=== PATIENT | female | born 1955 | race Caucasian/White ===

== ENCOUNTER → 2017-12-20 12:36 | Outpatient (CLI) | payer OTHER, SELFPAY ==
--- NOTE | 2017-12-20 | DI.US.S_ITS ---
PROCEDURE: US ARTERIAL DUPLEX LE BI INDICATIONS: Bilateral lower extremity pain TECHNIQUE: Color and pulse Doppler interrogation was performed of both lower extremity arterial systems, with image documentation. COMPARISON: None. FINDINGS: Right lower extremity: Common femoral artery: 63 cm/sec, with triphasic flow. Deep femoral artery: 27 cm/sec, with triphasic flow. Proximal superficial femoral artery: 78 cm/sec, with triphasic flow. Mid superficial femoral artery: 67 cm/sec, with triphasic flow. Distal superficial femoral artery: 77 cm/sec, with triphasic flow. Popliteal artery: 35 cm/sec, with triphasic flow. Posterior tibial artery: 92 cm/sec, with triphasic flow. Anterior tibial artery/dorsalis pedis: 128 cm/sec, with biphasic flow. Zazueta-scale imaging description: Normal. Left lower extremity: Common femoral artery: 76 cm/sec, with triphasic flow. Deep femoral artery: 41 cm/sec, with biphasic flow. Proximal superficial femoral artery: 72 cm/sec, with triphasic flow. Mid superficial femoral artery: 59 cm/sec, with triphasic flow. Distal superficial femoral artery: 49 cm/sec, with triphasic flow. Popliteal artery: 38 cm/sec, with triphasic flow. Posterior tibial artery: 68 cm/sec, with triphasic flow. Anterior tibial artery/dorsalis pedis: 53 cm/sec, with triphasic flow. Zazueta-scale imaging description: Normal IMPRESSION: 1. No hemodynamic significant stenosis in lower extremity arteries bilaterally. Dictated by: Lee Robb M.D. on 12/20/2017 at 16:54 Approved by: Lee Robb M.D. on 12/20/2017 at 16:57
== END ==
PROVIDERS: Family Provider Internal Medicine; PCP Internal Medicine; Visit Provider Internal Medicine
DX: M79.604 Pain in right leg (principal); M79.605 Pain in left leg
CPT/HCPCS: 93925

== ENCOUNTER → 2018-08-28 09:53 | Outpatient (CLI) | payer OTHER, SELFPAY | PROVIDERS: PCP Internal Medicine; Visit Provider Internal Medicine | DX: M81.0 Age-related osteoporosis without current pathological fracture (principal); Z78.0 Asymptomatic menopausal state; Z82.62 Family history of osteoporosis | CPT/HCPCS: 77080 ==

== ENCOUNTER 2018-12-26 11:40 | Day surgery (SDC) | payer OTHER, SELFPAY ==
[2018-12-26] VITALS (7 sets, daily range): BP systolic 105–139; BP diastolic 66–80; PULSE 60–68; RESP 13–16; TEMP 36.4–36.8; O2SAT 15–99; BMI 19.1
[2018-12-26] MEDS: SODIUM CHLORIDE 0.9% 1,000 ML 200 ML IV (12:58)
--- NOTE | 2018-12-26 13:11 | PM.HP.1 ---
History of Present Illness Date Patient Seen: 12/26/18 Time Patient Seen: 13:11 Chief complaint: [id number] Narrative: 63-year-old woman presents for screening colonoscopy. Last colonoscopy 6 years ago with single polyp identified No family history of colorectal cancer Tolerated it prep well Patient History Social History household members: spouse Family & Social History Social History: household members spouse Meds Home Medications Medication Instructions Recorded Confirmed Type COENZYME Q10/VITAMIN E (CO-Q-10 100 mg PO QDAY #0 09/20/12 12/26/18 History 100mg) B12 500 mcg PO DAILY 12/26/18 12/26/18 History cholecalciferol (vitamin D3) 2,000 unit PO DAILY 12/26/18 12/26/18 History [Vitamin D3] Allergies Allergy/AdvReac Type Severity Reaction Status Date / Time No Known Drug Allergies Allergy Verified 12/26/18 12:51 Review of Systems Constitutional Constitutional: Denies fever(s) Eyes Eyes: Denies bulging eyes ENT Ears, Nose, Mouth, and Throat: No lip swelling Cardiovascular Cardiovascular: Denies generalize swelling Respiratory Respiratory: Denies stridor Gastrointestinal Gastrointestinal: Denies coffee ground emesis Musculoskeletal Musculoskeletal: Denies loss of height Integumentary/Breasts Skin/Breast: Denies wounds Neurologic Neurologic: Denies abnormal speech and Denies confusion Psychiatric Psychiatric: Denies confusion Endocrine Endocrine: Denies deepening of the voice Hematologic/Lymphatic Hematologic/Lymphatic: Denies lymphadenopathy Allergic/Immunologic Allergic/Immunologic: Denies lip swelling Exam Vital Signs (past 8 hours): - 12/26/18 12:50 Temperature 98.2 F Pulse Rate 60 Respiratory Rate 15 Blood Pressure 139/80 Pulse Oximetry 99 Const General: cooperative and healthy appearing Orientation: alert [facility] Head: normal to inspection Nose: nares normal Mouth: oral mucosae normal and lip normal Eyes Eyelids: eyelids normal Conjunctivae: conjunctivae normal Sclera: sclerae normal Neck Neck: supple and other (No thyromegally) Chest Chest: other (LCTAB , regular respiratory effort) Cardio Rhythm: regular rhythm Heart Sounds: S1 normal, S2 normal, no gallops, no murmurs and no rubs GI Other: Soft nontender nondistended Skin General: no rashes or lesions noted Neuro General: alert and awake Psych Appearance: grossly normal Affect: normal affect Assessment & Plan Assessment & Plan narrative: 63-year-old woman here for screening colonoscopy overdue by 1 year risks and benefits procedure discuss risks including perforation, , missed lesion, hypoxia all discussed All questions answered Patient rated proceed
[2018-12-26] MEDS: fentaNYL 250 MCG/5 ML INJ IV (13:39)
[2018-12-26] MEDS: MIDAZOLAM 5 MG/5 ML VIAL IV (13:40)
--- NOTE | 2018-12-26 13:41 | PM.OP.ENDO ---
Operative Date/Time/Diagnoses Date of procedure: 12/26/18 Time of procedure: 13:41 Pre-op diagnosis: Screening colonoscopy Post-op diagnosis: same Procedure & Clinicians Study performed: Screening colonoscopy-complete Same procedure as scheduled: Yes Indications: 63-year-old woman with a history of colon polyps presents 6 years after her most recent screening colonoscopy Surgeon: Armando Cullen Procedure Notes SCOAP/Timeout: Completed Procedure in detail: Patient was brought to the endoscopy suite. A time-out was completed. She was sedated over the entire course of her procedure was 75 mcg of fentanyl and 8 mg of midazolam. A digital rectal exam was performed. There are no masses or lesions. Under 60 cm colonoscope was introduced through the anus and through the folds of the rectum and colon until the cecum was identified. The colon itself was quite floppy, tortuous and redundant. The cecum was identified via a prominent gross foot and the ileocecal valve. The scope was then slowly withdrawn inspecting the intraluminal contents. No lesions were identified. Prep was adequate The scope was retroflexed in the distal rectum with again no lesions identified Scope withdrawal time: 8 Sedation minutes: 26 Specimen(s): none sent Complications: none Impression: Normal screening colonoscopy Quite tortuous colon Recommendations: Colonscopy in 5 years Plan for aftercare: Follow-up in 5 years due to history of previous colon polyps Follow up: as needed Disposition: PACU
== END 2018-12-26 14:28 | disposition home or self-care (01) ==
LOC: ENDO 11:41
PROVIDERS: PCP Internal Medicine; Visit Provider Surgery
PROC: 0DJD8ZZ Inspection of Lower Intestinal Tract, Via Natural or Artificial Opening Endoscopic (ICD-10-PCS; CPT 45378; principal; 2018-12-26 13:00)
DX: Z86.010 Personal history of colon polyps (principal)
CPT/HCPCS: 45378; 99152; J2250; J3010

== ENCOUNTER → 2020-07-01 14:00 | Outpatient (CLI) | payer MEDICARE, OTHER, SELFPAY ==
--- NOTE | 2020-07-01 | DI.US.S_ITS ---
LIMITED ULTRASOUND OF LEFT BREAST: 07/01/2020 CLINICAL: Palpable left breast lump by physician. Comparison is made to exams dated: 07/01/2020 mammogram - [facility] and 09/26/2017 mammogram - [facility]. Real-time ultrasound of the left breast 12 o'clock region was performed. Zazueta scale images of the real-time examination were reviewed. No significant abnormalities were seen sonographically in the left breast. IMPRESSION: NEGATIVE There is no sonographic evidence of malignancy. There is no abnormality seen in the left breast to correspond with the palpable abnormality at 12 o'clock, however, clinical correlation is recommended. A 1 year screening mammogram is recommended. This exam was interpreted at Station ID: [id number]. Electronically Signed By: Ramírez abdi/lili:07/01/2020 15:49:39 letter sent: Clinical Evaluation Ultrasound BI-RADS: 1 Negative
--- NOTE | 2020-07-01 | DI.MG.S_ITS ---
BILATERAL DIGITAL DIAGNOSTIC MAMMOGRAM 3D/2D: 07/01/2020 CLINICAL: Left breast mass. Comparison is made to exams dated: 07/24/2013 mammogram, 06/21/2011 mammogram - [facility], and 09/26/2017 mammogram - [facility]. The tissue of both breasts is predominantly fatty. No significant masses, calcifications, or other findings are seen in either breast. IMPRESSION: INCOMPLETE: NEEDS ADDITIONAL IMAGING EVALUATION There is no abnormality seen in the left breast to correspond with the physician-reported palpable abnormality at 12 o'clock, however, ultrasound is recommended. This exam was interpreted at Station ID: [id number]. NOTE: For mammograms, a report in lay terms will be sent to the patient. Approximately 15% of breast malignancies will not be visualized mammographically. In the management of a palpable breast mass, a negative mammogram must not discourage biopsy of a clinically suspicious lesion. SUMMARY: Targeted ultrasound is recommended for further evaluation and will be scheduled immediately following this exam. Electronically Signed By: Ramírez Kitchen M.D. ar/:07/01/2020 14:47:36 ACR BI-RADS Category 0: Incomplete [id number]
== END ==
PROVIDERS: PCP Internal Medicine; Referring Provider Internal Medicine; Visit Provider Internal Medicine
DX: R92.8 Other abnormal and inconclusive findings on diagnostic imaging of breast (principal); N63.25 Unspecified lump in the left breast, overlapping quadrants
CPT/HCPCS: 76642; 77066; G0279

== ENCOUNTER 2020-09-22 13:34 | Observation (INO) | payer MEDICARE, OTHER, SELFPAY ==
[2020-09-22] VITALS (8 sets, daily range): BP systolic 106–183; BP diastolic 68–94; PULSE 51–117; RESP 12–27; TEMP 36.4–36.6; O2SAT 92–99
--- NOTE | 2020-09-22 13:49 | DI.RAD.S_ITS ---
PROCEDURE: XR CHEST 1V INDICATIONS: chest pain TECHNIQUE: One view of the chest was acquired. COMPARISON: None. FINDINGS: Surgical changes and devices: None. Lungs and pleura: Lungs are clear. No pleural effusions or pneumothorax. Mediastinum: Mediastinal contours appear normal. Heart size is normal. Bones and chest wall: No suspicious bony lesions. Overlying soft tissues appear unremarkable. IMPRESSION: No acute process. Dictated by: Marcelle Ace M.D. on 09/22/2020 at 14:10 Approved by: Marcelle Ace M.D. on 09/22/2020 at 14:11
[2020-09-22] MEDS: ASPIRIN 81 MG CHEW TAB 324 MG PO (14:03)
[2020-09-22 14:06] LABS: Add Manual Diff / Slide Review NO; Basophils Absolute Auto 100 /uL (0-100); Eosinophils Absolute Auto 100 /uL (0-450); Eosinophils Percent Auto 1.4 % (2-4); Hematocrit 41.6 % (36-46); Lymphocytes Absolute Auto 2200 /uL (1100-4500); Lymphocytes Percent Auto 36.9 % (25-40); Mean Corpuscular HGB Conc 33.7 % (30-36); Mean Corpuscular Hemoglobin 31.4 PG (26-34); Mean Corpuscular Volume 93.3 fL (80-100); Monocytes Absolute Auto 600 /uL (0-900); Monocytes Percent Auto 10.6 % (3-14); Neutrophils Absolute Auto 3100 /uL (1500-7000); Neutrophils Percent Auto 50.1 % (50-75); Platelet Count 307 X10^3/uL (150-400); Red Blood Cell Count 4.46 X10^6/uL (4.0-5.2); Red Cell Distribution Width 13.7 % (11.6-14.8); White Blood Cell Count 6.1 X10^3/uL (4.5-11.0)
[2020-09-22 14:09] LABS: PTT Partial Thromboplastin Tim 33 SECONDS (26.4-36.2)
[2020-09-22 14:24] LABS: Alanine Aminotransferase 26 IU/L (<35); Albumin 4.4 g/dL (3.5-5.0); Albumin Globulin Ratio 1.5 (1.0-2.8); Alkaline Phosphatase 61 U/L (38-126); Aspartate Aminotransferase 35 IU/L (14-36); BUN Creatinine Ratio 29.7 (6-22); Bilirubin Total 0.2 mg/dL (0.2-1.3); Blood Urea Nitrogen 19 mg/dL (7-17); Calcium 9.5 mg/dL (8.4-10.2); Carbon Dioxide 30 mmol/L (22-32); Chloride 101 mmol/L (98-107); Creatine Kinase 142 U/L (30-135); Estimated Glomerular Filt Rate > 60.0 mL/min (>60); Glucose 105 mg/dL (80-110); HEMOLYSIS 17 (0-50); Lipase 101 U/L (23-300); Potassium 3.7 mmol/L (3.4-5.1); Sodium 136 mmol/L (137-145); Total Protein 7.4 g/dL (6.3-8.2)
--- NOTE | 2020-09-22 14:33 | ED.CHESTPAIN ---
HPI - Chest Pain General Chief Complaint: Chest Pain Stated Complaint: Chest Pain 2X Time Seen by Provider: 09/22/20 13:54 Source: patient Mode of arrival: Ambulatory Limitations: no limitations History of Present Illness HPI narrative: Patient is a 64-year-old healthy female who is very active presenting with 3 days of chest discomfort. sHe says that she has had 1 episodes of chest discomfort that started on the left side and seemed to gradually get bigger and lasted for 15 minutes. It starts at rest it does not radiate to her back drawn off or arm. She denies any shortness of breath. In fact she was able to still run 5 miles following day and mow her lawn yesterday. She denies any fluttering or palpitations. She has a lot of stress at home with an alcoholic . MD complaint: chest pain Onset (ago): day(s) Quality: aching Relieving factors: nothing Exacerbating factors: nothing Related Data Home Medications Medication Instructions Recorded Confirmed COENZYME Q10/VITAMIN E (CO-Q-10 100 mg PO QDAY #0 09/20/12 09/22/20 100mg) B12 500 mcg PO DAILY 12/26/18 09/22/20 cholecalciferol (vitamin D3) 2,000 unit PO DAILY 12/26/18 09/22/20 [Vitamin D3] Allergies Allergy/AdvReac Type Severity Reaction Status Date / Time No Known Drug Allergies Allergy Verified 09/22/20 14:29 Review of Systems Review of Systems Narrative: GENERAL: Denies chills, fatigue, malaise, fever, sweats, travel HEENT: Denies sinus pain, ear pain, sore throat, difficulty swallowing, neck pain RESPIRATORY: Denies dyspnea, cough, wheezing, hemoptysis, sputum. CARDIOVASCULAR: See HPI GASTROINTESTINAL: Denies nausea, vomiting, abdominal pain, diarrhea, constipation, melena. : Denies dysuria, frequency, incontinence, hematuria, urinary retention, flank pain. MUSCULOSKELETAL: Denies weakness, joint pain, or bony pain SKIN: No rash, no erythema, no pruritus NEUROLOGIC: Denies weakness, dizziness, headache, numbness, change in speech, confusion PSYCHIATRIC: No concerning psychosocial issues. 12 point review of systems is negative except for those stated above and HPI Patient History Medical History Patient denies medical problems Social History household members: spouse Smoking Status: Never smoker Smoking Status: Never smoker alcohol intake frequency: 0-2 drinks per day Substance Use Type: does not use Exam Initial Vital Signs Initial Vital Signs: Vital Signs Pulse Rate 75 09/22/20 13:41 Respiratory Rate 19 09/22/20 13:41 Pulse Oximetry 96 09/22/20 13:41 GENERAL: Well-appearing, well-nourished and in no acute distress. HEENT: Head atraumatic,EOMI, pupils reactive, face symmetric, moist mucous membranes CARDIOVASCULAR: Regular rate and rhythm without murmurs, rubs or gallops. RESPIRATORY: Breath sounds equal bilaterally, no wheezes rales or rhonchi. ABDOMEN: Soft, nontender. Normoactive bowel sounds all 4 quadrants. No guarding or rebound. EXTREMITIES: Normal range of motion, no clubbing or edema. Neurovascularly intact NEUROLOGICAL: Alert and oriented x4.Normal gait and speech. Cranial nerves II through XII grossly intact. SKIN: Warm, dry, no laceration, no petechiae, no rashes or lesions. Scores HEART Score Heart Score history: Slightly Suspicious Heart Score EKG: Normal Heart Score Age: > or = 65 years old Heart Score risk factors: No known risk factors Heart Score troponin: < or = to normal limit Heart Score Total: 2 Course Orders Ordered: ED Orders 09/22/20 13:45 Complete Blood Count AUTO DIFF Stat Comprehensive Metabolic Panel Stat Lipase Stat Magnesium Stat NT-proBNP (BNP-Adult 18+) Stat Partial Thromboplastin Time Stat Prothrombin Time INR Stat Troponin & CK Cardiac Panel Stat 09/22/20 13:49 XR chest 1V Stat EKG-12 Lead Stat 09/22/20 14:00 Thyroid Stimulating Hormone Stat 09/22/20 14:14 COVID19 - ADMIT (ACTU[employer]IAL MATHEMATICIAN swab/PCR) Stat Nitroglycerin (Nitroglycerin 0.4 Mg Sl Tab) 0.4 mg SL [id number] PRN PRN Reason: Chest Pain Discontinued Medications Aspirin (Aspirin 81 Mg Chew Tab) 324 mg PO NOW ONE Stop: 09/22/20 13:50 Last Admin: 09/22/20 14:03 Dose: 324 mg Documented by: HERIBERTO Vital Signs Vital signs: Vital Signs - 8 hr 09/22/20 13:41 09/22/20 14:00 09/22/20 14:25 Temperature 97.5 F L Pulse Rate 75 64 71 Respiratory Rate 19 12 15 Blood Pressure 169/94 H 183/89 H Pulse Oximetry 96 99 92 09/22/20 14:30 09/22/20 15:00 09/22/20 15:30 Temperature Pulse Rate 51 L 54 L 53 L Respiratory Rate 27 H 16 15 Blood Pressure 140/74 152/77 H 139/68 Pulse Oximetry 99 99 99 MDM - Chest Pain Lab Data Attestation: I reviewed the patient's lab results. Result diagrams: 09/22/20 13:45 09/22/20 13:45 Labs: Lab Results 09/22/20 09/22/20 09/22/20 Range/Units 13:45 13:45 13:45 WBC 6.1 (4.5-11.0) X10^3/uL RBC 4.46 (4.0-5.2) X10^6/uL Hgb 14.0 (12.0-16.0) g/dL Hct 41.6 (36-46) % MCV 93.3 (80-100) fL MCH 31.4 (26-34) PG MCHC 33.7 (30-36) % RDW 13.7 (11.6-14.8) % Plt Count 307 (150-400) X10^3/uL Neut % (Auto) 50.1 (50-75) % Lymph % (Auto) 36.9 (25-40) % [place] % (Auto) 10.6 (3-14) % Eos % (Auto) 1.4 L (2-4) % Baso % (Auto) 1.0 (0-2) % Neut # (Auto) 3100 (5716-5595) /uL Lymph # (Auto) 2200 (0840-8198) /uL [place] # (Auto) 600 (0-900) /uL Eos # (Auto) 100 (0-450) /uL Baso # (Auto) 100 (0-100) /uL PT 11.0 (10.1-12.7) SECONDS INR 1.0 (0.9-1.3) APTT 33 (26.4-36.2) SECONDS Sodium 136 L (137-145) mmol/L Potassium 3.7 (3.4-5.1) mmol/L Chloride 101 (98-107) mmol/L Carbon Dioxide 30 (22-32) mmol/L BUN 19 H (7-17) mg/dL Creatinine 0.64 (0.52-1.04) mg/dL Estimated GFR > 60.0 (>60) mL/min BUN/Creatinine Ratio 29.7 H (6-22) Glucose 105 (80-110) mg/dL Calcium 9.5 (8.4-10.2) mg/dL Magnesium (1.6-2.3) mg/dL Total Bilirubin 0.2 (0.2-1.3) mg/dL AST 35 (14-36) IU/L ALT 26 (<35) IU/L Alkaline Phosphatase 61 (38-126) U/L Total Creatine Kinase 142 H (30-135) U/L CK-MB (CK-2) 2.66 H (<2.37) ng/mL CK-MB (CK-2) Rel Index 1.9 (1.5-5.0) % Troponin I < 0.012 (0.01-0.034) ng/mL NT-Pro-B Natriuret Pep (<125) pg/mL Total Protein 7.4 (6.3-8.2) g/dL Albumin 4.4 (3.5-5.0) g/dL Globulin 3.0 (1.7-4.1) g/dL Albumin/Globulin Ratio 1.5 (1.0-2.8) Lipase 101 (23-300) U/L TSH (0.47-4.68) uIU/mL SARS-CoV-2 (PCR) (Negative) 09/22/20 09/22/20 09/22/20 Range/Units 13:45 14:00 14:14 WBC (4.5-11.0) X10^3/uL RBC (4.0-5.2) X10^6/uL Hgb (12.0-16.0) g/dL Hct (36-46) % MCV (80-100) fL MCH (26-34) PG MCHC (30-36) % RDW (11.6-14.8) % Plt Count (150-400) X10^3/uL Neut % (Auto) (50-75) % Lymph % (Auto) (25-40) % [place] % (Auto) (3-14) % Eos % (Auto) (2-4) % Baso % (Auto) (0-2) % Neut # (Auto) (2652-7912) /uL Lymph # (Auto) (8980-4647) /uL [place] # (Auto) (0-900) /uL Eos # (Auto) (0-450) /uL Baso # (Auto) (0-100) /uL PT (10.1-12.7) SECONDS INR (0.9-1.3) APTT (26.4-36.2) SECONDS Sodium (137-145) mmol/L Potassium (3.4-5.1) mmol/L Chloride (98-107) mmol/L Carbon Dioxide (22-32) mmol/L BUN (7-17) mg/dL Creatinine (0.52-1.04) mg/dL Estimated GFR (>60) mL/min BUN/Creatinine Ratio (6-22) Glucose (80-110) mg/dL Calcium (8.4-10.2) mg/dL Magnesium 2.2 (1.6-2.3) mg/dL Total Bilirubin (0.2-1.3) mg/dL AST (14-36) IU/L ALT (<35) IU/L Alkaline Phosphatase (38-126) U/L Total Creatine Kinase (30-135) U/L CK-MB (CK-2) (<2.37) ng/mL CK-MB (CK-2) Rel Index (1.5-5.0) % Troponin I (0.01-0.034) ng/mL NT-Pro-B Natriuret Pep 116 (<125) pg/mL Total Protein (6.3-8.2) g/dL Albumin (3.5-5.0) g/dL Globulin (1.7-4.1) g/dL Albumin/Globulin Ratio (1.0-2.8) Lipase (23-300) U/L TSH 1.63 (0.47-4.68) uIU/mL SARS-CoV-2 (PCR) Negative (Negative) Imaging Data Chest x-ray: Radiologist's Impression: PROCEDURE: XR CHEST 1V INDICATIONS: chest pain TECHNIQUE: One view of the chest was acquired. COMPARISON: None. FINDINGS: Surgical changes and devices: None. Lungs and pleura: Lungs are clear. No pleural effusions or pneumothorax. Mediastinum: Mediastinal contours appear normal. Heart size is normal. Bones and chest wall: No suspicious bony lesions. Overlying soft tissues appear unremarkable. IMPRESSION: No acute process. Dictated by: Marcelle Ace M.D. on 09/22/2020 at 14:10 ECG Data Attestation: I personally reviewed and interpreted this ECG as follows: Prior ECG tracings: not available for review Interpretation: Normal sinus rhythm rate 59 p.r. interval 132 QRS [address] changes no T-wave inversions MDM Narrative Medical decision making narrative: The patient has been chest pain-free while in the ED. However she did have 2nd run of V tach at 2:34 p.m.. At that time did not appear to be artifact and she felt some fluttering. 3:[address] Nany arredondo cardiology has been updated patient's symptoms and test results. At this time he recommends of echocardiogram and stress test along with adding a TSH and possibly starting her on a beta-michelle. He recommends that she can stay here at [facility] and does not need to be transferred. 3:[address] Swan updated on cardiology results patient's symptoms and test results and agrees with observation. Discharge Plan Departure Patient Disposition: Admitted as Observation Clinical Impression: Non-sustained ventricular tachycardia, Chest pain Admit Date/Time: 09/22/20 15:35 Admit Provider: Diamante Swan
[2020-09-22 14:36] LABS: Troponin I < 0.012 ng/mL (0.01-0.034)
[2020-09-22 14:39] LABS: CKMB % Relative Index 1.9 % (1.5-5.0); Creatine Kinase MB 2.66 ng/mL (<2.37)
[2020-09-22 14:43] LABS: Magnesium 2.2 mg/dL (1.6-2.3)
--- NOTE | 2020-09-22 14:48 | PC.NURSE ---
patient had a short run of Vtach on the monitor. RN immediately assessed. The patient reported feeling palpitations during the run. She was hooked up to the defibrillator, crash cart in room.
[2020-09-22 14:52] LABS: NT-proBNP (BNP-Adult 18+) 116 pg/mL (<125)
[2020-09-22 15:26] LABS: COVID19 - ADMIT (NP swab/PCR) Negative (Negative)
[2020-09-22 16:22] LABS: Thyroid Stimulating Hormone 1.63 uIU/mL (0.47-4.68)
--- NOTE | 2020-09-22 20:47 | PM.HP.1 ---
History of Present Illness History of Present Illness Date Patient Seen: 09/22/20 Time Patient Seen: 20:47 Date of Onset of Symptoms: 09/19/20 Chief complaint: Chest Pain 2X Narrative: This is a very pleasant healthy 64-year-old female who presents emergency department for complaints of a episode of left anterior chest pain occurring on 09/19/2020. The patient states that over the last 2 years approximately every 6 months she will have left anterior chest pain that lasts for about 15 minutes and spontaneously resolved. She had an episode on September 19 and she had a little bit of nausea but no vomiting no shortness of breath no diaphoresis is nonradiating and it resolved on its own. She went for a 5 mi run on Tuesday and felt good without any symptoms. She runs on a regular basis. She denies any exertional dyspnea or chest pain or palpitations. She was a little concerned about that and then this morning she noticed similar symptoms but less significant in and really only lasted for couple minutes. She met with several people today which she had previously had planned including her delinquency prevention social worker Dr. Monty Desir and they recommended she go into the ER to be evaluated. She was found to have a negative EKG negative CK and troponin and story was unconvincing for coronary artery disease and initially the emergency room physician was going to send her home but then she had a 6 beat episode of ventricular tachycardia and she discussed the case with Dr. ravindra mg who recommended admission for overnight observation with telemetry and stress testing and echo to be done in the morning. Otherwise patient is very healthy. She does describe having episodes every once in a while that are not associated with any chest pain shortness of breath or presyncope or syncope where she feels her heart flutter. She is under all a significant amount of stress as her is an alcoholic and she lives with him in [place]. She has had some mild elevated blood pressure and is seen Dr. Lepe to treat this naturally and was started on some type of herb about a week ago to treat this. Past medical history: 1. Osteoporosis, postmenopausal 2. Muscle cramps 3. History of basal cell carcinoma 4. History of colonic polyps 5. Hyperlipidemia 6. Elevated blood pressure without the diagnosis of hypertension 7. Situational stressor No chronic medications. She takes supplements including calcium and vitamin-D and Co Q10 Past surgical history 1. section x1 2. Two thousand four basal cell carcinoma removal Family history her father at age 22 secondary to a congenital heart defect Her mother at 70 from lung cancer Patient has 4 siblings who are all living Social history patient is and is retired Patient is retired Patient has 1 daughter who lives in [place] Health related behavior : Patient has never been a smoker Patient does not use alcohol and does not use illicit drugs Patient exercises regularly Review of systems is negative other than HPI Negative for any change in her bowel movements. Negative for any abdominal pain. Negative for any bright red per rectum. Negative for any fevers or chills or cough or dyspnea on exertion or PND orthopnea or lower extremity edema or rashes Patient has been under a large amount of stress Patient History Medical History Patient denies medical problems Family & Social History Social History: household members spouse Safety & Behavioral: Feels Safe in Current Yes Environment Been Physically Hurt or No Threatened By a Person Suicidal Ideation Description None Suicide Plan Description No Plan Tobacco & Substance use: Smoking Status Never smoker alcohol intake frequency 0-2 drinks per day Substance Use Type does not use Meds Home Medications and Allergies Home Medications Medication Instructions Recorded Confirmed Type COENZYME Q10/VITAMIN E (CO-Q-10 100 mg PO QDAY #0 09/20/12 09/22/20 History 100mg) B12 500 mcg PO DAILY 12/26/18 09/22/20 History cholecalciferol (vitamin D3) 2,000 unit PO DAILY 12/26/18 09/22/20 History [Vitamin D3] Allergies Allergy/AdvReac Type Severity Reaction Status Date / Time No Known Drug Allergies Allergy Verified 09/22/20 14:29 Exam Vital Signs (past 8 hours): - 09/22/20 13:41 09/22/20 14:00 09/22/20 14:25 Temperature 97.5 F L Pulse Rate 75 64 71 Respiratory Rate 19 12 15 Blood Pressure 169/94 H 183/89 H Pulse Oximetry 96 99 92 09/22/20 14:30 09/22/20 15:00 09/22/20 15:30 Temperature Pulse Rate 51 L 54 L 53 L Respiratory Rate 27 H 16 15 Blood Pressure 140/74 152/77 H 139/68 Pulse Oximetry 99 99 99 09/22/20 16:20 09/22/20 20:15 Temperature 97.5 F L 97.9 F Pulse Rate 117 H 57 L Respiratory Rate 20 18 Blood Pressure 163/91 H 106/69 Pulse Oximetry 93 97 Oxygen Delivery Method Room Air Oxygen Flow Rate 0 Narrative Exam Narrative: Afebrile, vital signs are stable Alert and oriented x3 and excellent historian HEENT: Unremarkable Neck: Supple without adenopathy Chest: Clear to auscultation without wheezes rhonchi or crackles Cor: Regular rate and rhythm without any murmur Abdomen: Positive bowel sounds, soft, nontender, nondistended no hepatosplenomegaly Extremities: No edema, pulses intact Neurologic exam is nonfocal No tenderness to palpation of the precordium Objective Labs Result Diagrams: 09/22/20 13:45 09/22/20 13:45 Labs: Laboratory Results - last 24 hr 09/22/20 09/22/20 09/22/20 13:45 13:45 13:45 WBC 6.1 RBC 4.46 Hgb 14.0 Hct 41.6 MCV 93.3 MCH 31.4 MCHC 33.7 RDW 13.7 Plt Count 307 Neut % (Auto) 50.1 Lymph % (Auto) 36.9 [place] % (Auto) 10.6 Eos % (Auto) 1.4 L Baso % (Auto) 1.0 Neut # (Auto) 3100 Lymph # (Auto) 2200 [place] # (Auto) 600 Eos # (Auto) 100 Baso # (Auto) 100 PT 11.0 INR 1.0 APTT 33 Sodium 136 L Potassium 3.7 Chloride 101 Carbon Dioxide 30 BUN 19 H Creatinine 0.64 Estimated GFR > 60.0 BUN/Creatinine Ratio 29.7 H Glucose 105 Calcium 9.5 Magnesium Total Bilirubin 0.2 AST 35 ALT 26 Alkaline Phosphatase 61 Total Creatine Kinase 142 H CK-MB (CK-2) 2.66 H CK-MB (CK-2) Rel Index 1.9 Troponin I < 0.012 NT-Pro-B Natriuret Pep Total Protein 7.4 Albumin 4.4 Globulin 3.0 Albumin/Globulin Ratio 1.5 Lipase 101 TSH SARS-CoV-2 (PCR) 09/22/20 09/22/20 09/22/20 13:45 14:00 14:14 WBC RBC Hgb Hct MCV MCH MCHC RDW Plt Count Neut % (Auto) Lymph % (Auto) [place] % (Auto) Eos % (Auto) Baso % (Auto) Neut # (Auto) Lymph # (Auto) [place] # (Auto) Eos # (Auto) Baso # (Auto) PT INR APTT Sodium Potassium Chloride Carbon Dioxide BUN Creatinine Estimated GFR BUN/Creatinine Ratio Glucose Calcium Magnesium 2.2 Total Bilirubin AST ALT Alkaline Phosphatase Total Creatine Kinase CK-MB (CK-2) CK-MB (CK-2) Rel Index Troponin I NT-Pro-B Natriuret Pep 116 Total Protein Albumin Globulin Albumin/Globulin Ratio Lipase TSH 1.63 SARS-CoV-2 (PCR) Negative Assessment & Plan Assessment & Plan narrative: 64-year-old female admitted for left anterior chest pain with episode brief of ventricular tachycardia in the ER Plan: Will admit to the hospital to rule out for acute myocardial infarction. TSH and magnesium is normal. We will do serial CKs and troponins. If these are negative we will do echo in the morning is stress Mibi Will continue telemetry Assessment 2. Elevated blood pressure suspect related to anxiety Plan: Will monitor throughout hospitalization Assessment 3. Osteoporosis no issues Code status is full code Quality VTE Deep Vein Thrombosis/Pulmonary Embolism Present on Admission: No
--- NOTE | 2020-09-22 22:37 | PC.NURSE ---
Pt alert/oriented, denies any discomfort at this time HL RFA intact/patent. Tele show NSR/SB Refuses SCD's Having ECHO & stress test tomorrow. Call light w/in reach, pt calls appropriately for needs. Continue w/plan of care.
[2020-09-23] VITALS (7 sets, daily range): BP systolic 112–126; BP diastolic 70–90; PULSE 58–66; RESP 14–18; TEMP 36.1–36.4; O2SAT 96–99
--- NOTE | 2020-09-23 00:23 | PC.NURSE ---
patient is alert and orineted. Breath sounds CTA with RA sat of 99%. HRR w/telemetry reading last recorded as SR. Denies any chest pain or palpitations. Denies nausea. BT present and abdomen is soft. Denies dysuria, frequency or urgency with urination. Is independent with mobility and steady on feet but verbalizes agreement to call for assistance if feeling weak, dizzy or lightheaded when getting out of bed. Declines use of SCD's so reminded to ankle wave. Fall risk score is moderate but no alarm in use at this time.
[2020-09-23 00:35] LABS: Creatine Kinase 95 U/L (30-135)
[2020-09-23 00:48] LABS: Troponin I < 0.012 ng/mL (0.01-0.034)
[2020-09-23 05:43] LABS: Add Manual Diff / Slide Review NO; Basophils Absolute Auto 0 /uL (0-100); Basophils Percent Auto 0.6 % (0-2); Eosinophils Absolute Auto 100 /uL (0-450); Eosinophils Percent Auto 2.3 % (2-4); Hematocrit 39.7 % (36-46); Hemoglobin 13.2 g/dL (12.0-16.0); Lymphocytes Absolute Auto 2000 /uL (1100-4500); Mean Corpuscular HGB Conc 33.2 % (30-36); Mean Corpuscular Volume 93.3 fL (80-100); Monocytes Absolute Auto 500 /uL (0-900); Monocytes Percent Auto 10.3 % (3-14); Neutrophils Absolute Auto 2400 /uL (1500-7000); Neutrophils Percent Auto 47.8 % (50-75); Platelet Count 270 X10^3/uL (150-400); Red Blood Cell Count 4.26 X10^6/uL (4.0-5.2); Red Cell Distribution Width 13.4 % (11.6-14.8)
[2020-09-23 06:00] LABS: Creatine Kinase 84 U/L (30-135)
[2020-09-23 06:01] LABS: BUN Creatinine Ratio 23.1 (6-22); Blood Urea Nitrogen 15 mg/dL (7-17); Calcium 8.9 mg/dL (8.4-10.2); Carbon Dioxide 30 mmol/L (22-32); Chloride 106 mmol/L (98-107); Estimated Glomerular Filt Rate > 60.0 mL/min (>60); Glucose 96 mg/dL (80-110); HEMOLYSIS < 15 (0-50); Potassium 4.1 mmol/L (3.4-5.1); Sodium 138 mmol/L (137-145)
[2020-09-23 06:12] LABS: Troponin I < 0.012 ng/mL (0.01-0.034)
--- NOTE | 2020-09-23 08:12 | P.PN_ITS ---
Subjective Subjective Date Patient Seen: 09/23/20 Time Patient Seen: 08:13 Interval history: Patient had an uneventful night. She was able to sleep. She has had no further chest pain or flutters or palpitations. Her telemetry showed bradycardia at times during sleep to 49 but otherwise no abnormalities and no arrhythmia Patient is urinating, eating, stooling without difficulties Review of systems is negative for any GI, symptoms. No headaches or visual changes. No chest pain or shortness of breath Exam Vital Signs (past 8 hours): - 09/23/20 05:05 09/23/20 07:53 09/23/20 07:56 Temperature 97.6 F 97.6 F Pulse Rate 60 62 Respiratory Rate 16 14 Blood Pressure 124/74 126/77 Pulse Oximetry 97 99 97 Oxygen Delivery Method Room Air Oxygen Flow Rate 0 Narrative Exam Narrative: Afebrile, vital signs are stable Patient is alert and oriented x3 in no apparent distress Patient is a good historian appears younger than stated age Neck: Supple without adenopathy Chest: Clear to auscultation without wheezes rhonchi or crackles Cor: Regular rate and rhythm without a murmur Abdomen: Positive bowel sounds, soft, nontender Extremities: No edema, pulses intact Objective Labs Result Diagrams: 09/23/20 04:50 09/23/20 04:50 Labs: Laboratory Results - last 24 hr 09/22/20 09/22/20 09/22/20 13:45 13:45 13:45 WBC 6.1 RBC 4.46 Hgb 14.0 Hct 41.6 MCV 93.3 MCH 31.4 MCHC 33.7 RDW 13.7 Plt Count 307 Neut % (Auto) 50.1 Lymph % (Auto) 36.9 [place] % (Auto) 10.6 Eos % (Auto) 1.4 L Baso % (Auto) 1.0 Neut # (Auto) 3100 Lymph # (Auto) 2200 [place] # (Auto) 600 Eos # (Auto) 100 Baso # (Auto) 100 PT 11.0 INR 1.0 APTT 33 Sodium 136 L Potassium 3.7 Chloride 101 Carbon Dioxide 30 BUN 19 H Creatinine 0.64 Estimated GFR > 60.0 BUN/Creatinine Ratio 29.7 H Glucose 105 Calcium 9.5 Magnesium Total Bilirubin 0.2 AST 35 ALT 26 Alkaline Phosphatase 61 Total Creatine Kinase 142 H CK-MB (CK-2) 2.66 H CK-MB (CK-2) Rel Index 1.9 Troponin I < 0.012 NT-Pro-B Natriuret Pep Total Protein 7.4 Albumin 4.4 Globulin 3.0 Albumin/Globulin Ratio 1.5 Lipase 101 TSH SARS-CoV-2 (PCR) 09/22/20 09/22/20 09/22/20 13:45 14:00 14:14 WBC RBC Hgb Hct MCV MCH MCHC RDW Plt Count Neut % (Auto) Lymph % (Auto) [place] % (Auto) Eos % (Auto) Baso % (Auto) Neut # (Auto) Lymph # (Auto) [place] # (Auto) Eos # (Auto) Baso # (Auto) PT INR APTT Sodium Potassium Chloride Carbon Dioxide BUN Creatinine Estimated GFR BUN/Creatinine Ratio Glucose Calcium Magnesium 2.2 Total Bilirubin AST ALT Alkaline Phosphatase Total Creatine Kinase CK-MB (CK-2) CK-MB (CK-2) Rel Index Troponin I NT-Pro-B Natriuret Pep 116 Total Protein Albumin Globulin Albumin/Globulin Ratio Lipase TSH 1.63 SARS-CoV-2 (PCR) Negative 09/23/20 09/23/20 09/23/20 00:10 04:50 04:50 WBC 5.0 RBC 4.26 Hgb 13.2 Hct 39.7 MCV 93.3 MCH 31.0 MCHC 33.2 RDW 13.4 Plt Count 270 Neut % (Auto) 47.8 L Lymph % (Auto) 39.0 [place] % (Auto) 10.3 Eos % (Auto) 2.3 Baso % (Auto) 0.6 Neut # (Auto) 2400 Lymph # (Auto) 2000 [place] # (Auto) 500 Eos # (Auto) 100 Baso # (Auto) 0 PT INR APTT Sodium 138 Potassium 4.1 Chloride 106 Carbon Dioxide 30 BUN 15 Creatinine 0.65 Estimated GFR > 60.0 BUN/Creatinine Ratio 23.1 H Glucose 96 Calcium 8.9 Magnesium Total Bilirubin AST ALT Alkaline Phosphatase Total Creatine Kinase 95 CK-MB (CK-2) TNP CK-MB (CK-2) Rel Index TNP Troponin I < 0.012 NT-Pro-B Natriuret Pep Total Protein Albumin Globulin Albumin/Globulin Ratio Lipase TSH SARS-CoV-2 (PCR) 09/23/20 04:50 WBC RBC Hgb Hct MCV MCH MCHC RDW Plt Count Neut % (Auto) Lymph % (Auto) [place] % (Auto) Eos % (Auto) Baso % (Auto) Neut # (Auto) Lymph # (Auto) [place] # (Auto) Eos # (Auto) Baso # (Auto) PT INR APTT Sodium Potassium Chloride Carbon Dioxide BUN Creatinine Estimated GFR BUN/Creatinine Ratio Glucose Calcium Magnesium Total Bilirubin AST ALT Alkaline Phosphatase Total Creatine Kinase 84 CK-MB (CK-2) TNP CK-MB (CK-2) Rel Index TNP Troponin I < 0.012 NT-Pro-B Natriuret Pep Total Protein Albumin Globulin Albumin/Globulin Ratio Lipase TSH SARS-CoV-2 (PCR) PFSH Medical History Patient denies medical problems Social History household members: spouse Smoking Status: Never smoker Assessment & Plan Assessment & Plan narrative: 64-year-old female admitted for chest pain without further symptoms. Assessment 1. Chest pain. Patient has been ruled out for acute myocardial infarction with serial CK and troponins which were negative x3. She has had no recurrent symptoms. Plan: Plan is for an echo and a stress Mibi today and if this is negative she may go home with follow-up with her primary care provider, Dara Maddox nurse practitioner and she has an appointment with her on 09/30 20 Assessment 2. Ventricular tachycardia with a brief episode I believe of 6 beats in the ER. No further problems. Plan: Magnesium and thyroid are normal. Will do echo to look for structural abnormalities and a stress Mibi and if these look good patient can go home and follow up with as an outpatient cardiology possibly will do a Zio patch Assessment 3. Borderline hypertension with now good blood pressures Plan: Continue to manage as outpatient 35 minutes spent with patient in counseling and coordination care Quality VTE Deep Vein Thrombosis/Pulmonary Embolism Present on Admission: No
--- NOTE | 2020-09-23 09:00 | DI.NM.S_ITS ---
PROCEDURE: NM DENISE PERF SPECT REST & STR Rest and exercise myocardial perfusion SPECT with gated imaging and ejection fraction RADIOPHARMACEUTICAL: 11.4 mCi Tc-99m sestamibi IV at rest and 26.4 mCi Tc-99m sestamibi IV at peak exercise. A one day-protocol was performed. INDICATIONS: chest pain, ventricular tachycardia TECHNIQUE: Radiopharmaceutical was injected at peak stress test, and also at rest. SPECT images were obtained. SPECT myocardial perfusion images were displayed in short axis, horizontal long axis, and vertical long axis views. Gated images were reviewed using [employer] software. COMPARISON: None. CARDIAC STRESS: A standard Chad treadmill exercise tolerance test was performed by the patient under the supervision of an attending staff. The patient exercised for 10 minutes and 1 seconds; functional aerobic impairment (RHONA) is -56%. Hemodynamic data: There is normal blood pressure and heart rate response to exercise stress. Patient achieved 104% of maximum predicted heart rate at peak exercise. Symptoms: Patient denied chest pain during exercise. EKG: No diagnostic EKG changes of ischemia; no ectopy. FINDINGS: Raw data: There is good myocardial labeling by radiotracer. No significant motion artifacts. Qddl-[id number] ratio is 0.37 (normal is less than 0.38 for sestamibi tracer, and less than 0.50 for thallium tracer). Left ventricle function: Gated images demonstrate normal left ventricle wall thickening. No segmental wall motion abnormality. No transient ischemic dilation. The left ventricle resting end-diastolic volume is 108mL. Left ventricle stress ejection fraction is 73%; normal values are above 45%. Myocardial perfusion: There is a mild distal anterior wall defect that improves (but not resolves) with prone imaging, suggesting artifact. Infarction less likely. No ischemia. IMPRESSION: low risk, probably normal treadmill nuclear stress test. 1) No perfusion evidence of ischemia. There is a mild distal anterior wall defect that improves (but not resolves) with prone imaging, suggesting artifact. Infarction less likely. 2) Normal left ventricular size, wall motion, systolic function (EF post stress 73%). 3) No ECG evidence of ischemia. 4) No angina during the study. 5) Outstanding exercise tolerance (12.8 METs, RHONA -56%). Target heart rate achieved. Appropriate BP response to exercise. 6) No prior nuclear stress test available. Dictated by: Juan Manuel Hyman MD on 09/23/2020 at 16:46 Approved by: Juan Manuel Hyman MD on 09/23/2020 at 16:58
[2020-09-23] MEDS: SODIUM CHLORIDE 0.9% FLUSH 10 ML IV (09:35)
--- NOTE | 2020-09-23 10:30 | PC.NURSE ---
Addendum entered by Ema Castro R.N. 09/23/20 14:56: technical maintenance specialist unable to perform Echocardiogram. Notified Dr. Swan nurse at office. Patient aware. Awaiting for Stress test results. Original Note: Day note: Awake, alert, and pleasantly cooperative. Ambulating independently in room. NO c/o chest pain, dizziness, or SOB. NPO for procedures. VSS Dr. Swan with patient this am
--- NOTE | 2020-09-23 13:30 | PM.TREADMILL ---
Cardiac Stress Test Report Referral & Results Date Patient Seen: 09/23/20 Time Patient Seen: 13:30 Requesting provider: Diamante Swan Indication: chest pain Rest ECG: sinus rhythm Procedure Note: Standard Chad protocol, 10:01, 9.9 METS Excellent exercise capacity, RHONA -56% Normal hemodynamic response to exercise No chest pain or anginal symptoms No significant ST changes at peak exercise Frequent PVCs with multifocal PVCs, bigeminy, trigeminy, quadgeminy and NSVT Impression: normal exercise stress test Please note: Actual ECG tracings can be found in the PACS system.
--- NOTE | 2020-09-23 16:07 | CM.DANOTE ---
Discharge Planning/Care Management DCP: assessment note: case received, EMR reviewed. Discussed in team rounds. Pt is a 64 year old female who admitted yesterday afternoon to care of Dr. Swan. PCP: Dara Maddox Payer: Medicare and [employer]. Stress test and ECHO were pending. Pt has been up and independent in room Anticipate she will d/c home when stable for same. DCP team to check in prn if pt still here tomorrow. CM Discharge Assessment Start: 09/23/20 16:06 Freq: Status: Active Protocol: Document 09/23/20 16:07 ITV (Rec: 09/23/20 16:07 ITV [id number]) Discharge Planning Assessment Advance Directives? No History Provided By Medical Record Household Members spouse Independent with ADL's Yes Is patient alert and oriented? Yes
--- NOTE | 2020-09-23 17:31 | PM.DS.1 ---
History of Present Illness History of Present Illness Chief complaint: Chest Pain 2X Narrative: This is a very pleasant healthy 64-year-old female who presents emergency department for complaints of a episode of left anterior chest pain occurring on 09/19/2020. The patient states that over the last 2 years approximately every 6 months she will have left anterior chest pain that lasts for about 15 minutes and spontaneously resolved. She had an episode on September 19 and she had a little bit of nausea but no vomiting no shortness of breath no diaphoresis is nonradiating and it resolved on its own. She went for a 5 mi run on Tuesday and felt good without any symptoms. She runs on a regular basis. She denies any exertional dyspnea or chest pain or palpitations. She was a little concerned about that and then this morning she noticed similar symptoms but less significant in and really only lasted for couple minutes. She met with several people today which she had previously had planned including her leak patcher Dr. Monty Desir and they recommended she go into the ER to be evaluated. She was found to have a negative EKG negative CK and troponin and story was unconvincing for coronary artery disease and initially the emergency room physician was going to send her home but then she had a 6 beat episode of ventricular tachycardia and she discussed the case with Dr. ravindra mg who recommended admission for overnight observation with telemetry and stress testing and echo to be done in the morning. Otherwise patient is very healthy. She does describe having episodes every once in a while that are not associated with any chest pain shortness of breath or presyncope or syncope where she feels her heart flutter. She is under all a significant amount of stress as her is an alcoholic and she lives with him in [place]. She has had some mild elevated blood pressure and is seen Dr. Lepe to treat this naturally and was started on some type of herb about a week ago to treat this. Past medical history: 1. Osteoporosis, postmenopausal 2. Muscle cramps 3. History of basal cell carcinoma 4. History of colonic polyps 5. Hyperlipidemia 6. Elevated blood pressure without the diagnosis of hypertension 7. Situational stressor No chronic medications. She takes supplements including calcium and vitamin-D and Co Q10 Past surgical history 1. section x1 2. Two thousand four basal cell carcinoma removal Family history her father at age 22 secondary to a congenital heart defect Her mother at 70 from lung cancer Patient has 4 siblings who are all living Social history patient is and is retired Patient is retired Patient has 1 daughter who lives in [place] Health related behavior : Patient has never been a smoker Patient does not use alcohol and does not use illicit drugs Patient exercises regularly Review of systems is negative other than HPI Negative for any change in her bowel movements. Negative for any abdominal pain. Negative for any bright red per rectum. Negative for any fevers or chills or cough or dyspnea on exertion or PND orthopnea or lower extremity edema or rashes Patient has been under a large amount of stress Discharge Providers Provider Date of admission: 09/22/20 15:35 Discharge Date: 09/23/20 Primary care physician: JOSE ROBERTO Echevarria Discharge provider: Diamante Swan MD Summary Hospital Course Discharge Diagnosis: Chest pain, atypical in nature, serial CK and troponin negative x3 and stress Mibi negative, low risk scan Nonsustained ventricular tachycardia in ER, not recurrent did not occur with stress test Is frequent PVCs Hospital Course: 35 minutes spent in discharge and discussing with Cardiology and then the patient and documentation Patient admitted to the hospital where she underwent serial CK and troponin testing which were negative x3. Chest x-ray was unremarkable. Telemetry was unremarkable overnight other than mild bradycardia in the 50s lowest, 49 while sleeping. Patient asymptomatic. Patient underwent stress Mibi which showed a low risk scan but there were significant PVCs, bigeminy and trigeminy. There was no ventricular tachycardia. She had no chest pain and had excellent exercise capacity. She was discharged home on hospital day 2. In stable condition She will follow-up with her primary care provider Dara Maddox She will have an outpatient echo which unfortunately was not able to be done in the hospital. She will have a 1 week ZIO patch and a follow-up with Cardiology. Cardiology recommended starting on metoprolol XL 12.5 mg daily. Discussed medications and side effects and patient is reluctant to take this but I will send in a prescription for her. Status at Discharge Cognitive/behavioral status at discharge: oriented Functional status at discharge: independent ambulation Overall status at discharge: patient is back to baseline Exam Vital Signs (past 8 hours): - 09/23/20 11:40 09/23/20 15:00 09/23/20 15:45 Temperature 97.0 F L 97.6 F Pulse Rate 58 L 66 Respiratory Rate 16 18 Blood Pressure 112/70 126/76 Pulse Oximetry 98 96 97 Oxygen Delivery Method Room Air Oxygen Flow Rate 0 Narrative Exam Narrative: Afebrile vital signs are stable. Blood pressure excellent and heart rate in the 50s Chest: Clear to auscultation Cor: Regular rate and rhythm without a murmur Extremities unremarkable Objective Labs Result Diagrams: 09/23/20 04:50 09/23/20 04:50 Labs: Laboratory Results - last 24 hr 09/23/20 09/23/20 09/23/20 00:10 04:50 04:50 WBC 5.0 RBC 4.26 Hgb 13.2 Hct 39.7 MCV 93.3 MCH 31.0 MCHC 33.2 RDW 13.4 Plt Count 270 Neut % (Auto) 47.8 L Lymph % (Auto) 39.0 [place] % (Auto) 10.3 Eos % (Auto) 2.3 Baso % (Auto) 0.6 Neut # (Auto) 2400 Lymph # (Auto) 2000 [place] # (Auto) 500 Eos # (Auto) 100 Baso # (Auto) 0 Sodium 138 Potassium 4.1 Chloride 106 Carbon Dioxide 30 BUN 15 Creatinine 0.65 Estimated GFR > 60.0 BUN/Creatinine Ratio 23.1 H Glucose 96 Calcium 8.9 Total Creatine Kinase 95 CK-MB (CK-2) TNP CK-MB (CK-2) Rel Index TNP Troponin I < 0.012 09/23/20 04:50 WBC RBC Hgb Hct MCV MCH MCHC RDW Plt Count Neut % (Auto) Lymph % (Auto) [place] % (Auto) Eos % (Auto) Baso % (Auto) Neut # (Auto) Lymph # (Auto) [place] # (Auto) Eos # (Auto) Baso # (Auto) Sodium Potassium Chloride Carbon Dioxide BUN Creatinine Estimated GFR BUN/Creatinine Ratio Glucose Calcium Total Creatine Kinase 84 CK-MB (CK-2) TNP CK-MB (CK-2) Rel Index TNP Troponin I < 0.012 [facility] Medical History Patient denies medical problems Social History household members: spouse Smoking Status: Never smoker Discharge Plan Discharge Plan Patient Disposition: Home Discharge orders & Medications Prescriptions: Continued COENZYME Q10/VITAMIN E (CO-Q-10 100mg) 100 mg PO QDAY Qty: 0 RF: 0 cholecalciferol (vitamin D3) [Vitamin D3] 2,000 unit Tablet 2,000 unit PO DAILY RF: 0 B12 500 mcg PO DAILY RF: 0 Follow up/Referrals: Dara Maddox ARNP [Primary Care Provider] - Diet/Activity/Treatments Diet: Diet as Tolerated Discharge Data Primary Care Provider: Dara Maddox Attending Provider: Diamante Swan VTE Deep Vein Thrombosis/Pulmonary Embolism Present on Admission: No
--- NOTE | 2020-09-23 18:36 | PC.NURSE ---
Discharge Note Patient A&O, VSS, RA. No complaints of chest pain or shortness of breath. Discharge packet reviewed with patient along with follow-up instructions, all questions concerns answered. PIV/TELE discontinued. Patients belongings packed and given to patient. Patient able to dress self independently. Patient taken down via wheelchair to POV.
== END 2020-09-23 18:00 | disposition home or self-care (01) ==
LOC: ED 15:18 → AC 15:36
PROVIDERS: Emergency Medicine; Admitting Provider Family Medicine; Emergency Provider Emergency Medicine; PCP Internal Medicine; Referring Provider Emergency Medicine; Visit Provider Family Medicine
DX: R07.9 Chest pain, unspecified (principal); M81.0 Age-related osteoporosis without current pathological fracture; Z20.822 Contact with and (suspected) exposure to COVID-19
CPT/HCPCS: 36415; 71045; 78452; 80048; 80053; 82550; 82553; 83690; 83735; 83880; 84443; 84484; 85025; 85610; 85730; 87635; 93005; 93010; 93017; 99284; C9803; G0378; A9502

== ENCOUNTER → 2020-10-17 14:07 | Outpatient (CLI) | payer MEDICARE, OTHER, SELFPAY ==
--- NOTE | 2020-10-17 | DI.ECHO.S_ITS ---
[facility] +---------+ : : [address] : : [address] : : : : [place], : : : : [place] [id number] : : : : Phone: [phone] [id number] Echocardiogram Report + + :Name: ROBIN LOPEZ Study Date: 10/17/2020 Height: 67 in : :[facility] ReadingLocation: Weight: 128 lb : : Gender: Female BSA: 1.7 m2 : :: 1955 Age: 64 yrs BP: 137/83 mmHg: :Reason For Study: Chest pain : :Ordering Physician: TUTU, : :ANTHONY Performed By: Leo Lawrence : :Referring: ANTHONY JENSEN : + + Interpretation Summary Left ventricular systolic function is normal with an estimated ejection fraction of 55 to 60% without any focal wall motion abnormality. Left ventricular size and wall thickness appear normal with a probable diastolic relaxation abnormality with normal filling pressures. The right ventricle appears at the upper limits of normal in size with normal systolic function. Right ventricular systolic pressure cannot be estimated but CVP is likely around 3 mmHg. The left atrium is mildly enlarged. There is mild mitral regurgitation. The aortic valve is not well seen but is likely bicuspid with mild sclerosis but opens well without any aortic regurgitation. There is no other significant valvular abnormality. Procedure: A two-dimensional transthoracic echocardiogram with color flow and Doppler was performed. The study quality was technically adequate. There is no prior echocardiogram noted for this patient. The patient was in sinus rhythm with heart rates between 48-60 bpm during the exam. Left Ventricle: The left ventricle appears normal in size, wall thickness, and systolic function without any focal wall motion abnormalities. The ejection fraction is estimated to be 55-60%. Diastolic parameters suggest a relaxation abnormality of the left ventricle, consistent with probable normal filling pressures. Right Ventricle: The right ventricle is at the upper limits of normal in size. The right ventricular systolic function is normal. Atria: The left atrium is mildly dilated. The right atrium is normal in size. There is no Doppler evidence for an interatrial shunt. Mitral Valve: The mitral valve leaflets appear mildly thickened, but open well. There is mild mitral regurgitation. Aortic Valve: The aortic valve is bicuspid. There is mild aortic valve sclerosis. The aortic valve opens well. No aortic regurgitation is present. Tricuspid Valve: The tricuspid valve is normal in structure and function. No tricuspid regurgitation. Pulmonary artery pressures cannot be estimated because of the lack of a measurable TR jet velocity but the IVC suggests a CVP of around 3 mmHg. Pulmonic Valve: The pulmonic valve is not well seen, but is grossly normal. There is no pulmonic valvular regurgitation. Great Vessels: The aortic root is normal size. The ascending aorta could not be visualized. The IVC is of normal diameter and collapses greater than 50% with a sniff. This suggests a low right atrial pressure of 3 mm Hg. Pericardium/ Pleura There is no pericardial effusion. There is no pleural effusion. MMode/2D Measurements & Calculations LVIDd: 4.5 cm LVOT diam: 2.2 cm LVIDs: 3.1 cm Ao root diam: 3.0 cm IVSd: 0.82 cm LVPWd: 0.88 cm LV crowe. diameter/BSA (cm/m^2): 2.7 LV sys. diameter/BSA (cm/m^2): 1.9 FS: 30.4 % LA A2 area: 19.6 cm2 RA area: 18.2 cm2 LA A4 area: 20.4 cm2 LA length (vol): 5.0 cm LA vol: 68.1 ml LA vol index: 40.7 ml/m2 RVD1 (basal): 4.0 cm IVC diam: 1.8 cm TAPSE: 2.4 cm Doppler Measurements & Calculations Ao V2 max: 140.7 cm/sec LVOT Max Fitz: 126.3 cm/sec Ao V2 mean: 92.9 cm/sec LV V1 max P.4 mmHg Ao V2 VTI: 29.0 cm LV V1 VTI: 27.5 cm Ao max P.9 mmHg Ao mean P.9 mmHg PETR(I,D): 3.5 cm2 MV E max fitz: 55.9 cm/sec PETR(V,D): 3.3 cm2 MV A max fitz: 72.0 cm/sec PETR indexed to BSA (cm^2/m^2): 2.1 MV E/A: 0.78 sev ratio: 0.95 Med Peak E' Fitz: 4.7 cm/sec E/E' med: 11.9 Lat Peak E' Fitz: 8.7 cm/sec E/E' lat: 6.4 E/e' average: 9.1 MV dec time: 0.24 sec PA pr(Accel): 20.8 mmHg SV(LVOT): 101.8 ml Reading Physician:04:18 PM
== END ==
PROVIDERS: PCP Internal Medicine; Referring Provider Internal Medicine; Visit Provider Internal Medicine
DX: R07.89 Other chest pain (principal); I08.0 Rheumatic disorders of both mitral and aortic valves; I49.3 Ventricular premature depolarization; I47.2 Ventricular tachycardia
CPT/HCPCS: 93306

== ENCOUNTER 2022-01-14 07:35 | Emergency (ER) | payer MEDICARE, OTHER, SELFPAY ==
[2022-01-14] VITALS (11 sets, daily range): BP systolic 135–185; BP diastolic 66–103; PULSE 45–65; RESP 12–25; TEMP 36.5; O2SAT 94–99; BMI 20.5
--- NOTE | 2022-01-14 07:46 | DI.RAD.S_ITS ---
PROCEDURE: XR CHEST 1V INDICATIONS: chest pain TECHNIQUE: One view of the chest was acquired. COMPARISON: [facility], CR, XR CHEST 1V, 09/22/2020, 14:02. FINDINGS: Surgical changes and devices: Prior truncation of the right distal clavicle can be seen. Lungs and pleura: Lungs are clear. No pleural effusions or pneumothorax. Mediastinum: The cardiac contours are within normal limits. The aorta demonstrates calcification and tortuosity. Bones and chest wall: No suspicious bony lesions. Age-appropriate bony degenerative changes are seen. Overlying soft tissues appear unremarkable. IMPRESSION: No acute cardiopulmonary process is seen. Dictated by: Maurizio Berumen M.D. on 01/14/2022 at 8:16 Approved by: Maurizio Berumen M.D. on 01/14/2022 at 8:16
[2022-01-14 08:07] LABS: Alanine Aminotransferase 19 IU/L (<35); Albumin 4.2 g/dL (3.5-5.0); Albumin Globulin Ratio 1.3 (1.0-2.8); Alkaline Phosphatase 61 U/L (38-126); Aspartate Aminotransferase 37 IU/L (14-36); BUN Creatinine Ratio 23.9 (6-22); Bilirubin Total 0.9 mg/dL (0.2-1.3); Blood Urea Nitrogen 17 mg/dL (7-17); Calcium 8.5 mg/dL (8.4-10.2); Carbon Dioxide 30 mmol/L (22-32); Chloride 106 mmol/L (98-107); Creatine Kinase 226 U/L (30-135); Estimated Glomerular Filt Rate > 60 mL/min (>60); Globulin 3.3 g/dL (1.7-4.1); Glucose 104 mg/dL (80-110); Lipase 66 U/L (23-300); Magnesium 2.2 mg/dL (1.6-2.3); Potassium 4.7 mmol/L (3.4-5.1); Sodium 138 mmol/L (137-145); Total Protein 7.5 g/dL (6.3-8.2)
[2022-01-14 08:17] LABS: Troponin I 0.015 ng/mL (0.01-0.034)
[2022-01-14 08:21] LABS: HEMOLYSIS 101 (0-50)
[2022-01-14 08:32] LABS: Add Manual Diff / Slide Review NO; Basophils Absolute Auto 0 /uL (0-100); Basophils Percent Auto 0.8 % (0-2); Eosinophils Absolute Auto 100 /uL (0-450); Hematocrit 41.8 % (36-46); Hemoglobin 13.9 g/dL (12.0-16.0); Lymphocytes Absolute Auto 1400 /uL (1100-4500); Lymphocytes Percent Auto 26.8 % (25-40); Mean Corpuscular HGB Conc 33.3 % (30-36); Mean Corpuscular Hemoglobin 30.6 PG (26-34); Mean Corpuscular Volume 91.9 fL (80-100); Monocytes Absolute Auto 600 /uL (0-900); Monocytes Percent Auto 10.9 % (3-14); Neutrophils Absolute Auto 3100 /uL (1500-7000); Neutrophils Percent Auto 59.5 % (50-75); Platelet Count 275 X10^3/uL (150-400); Red Blood Cell Count 4.55 X10^6/uL (4.0-5.2); White Blood Cell Count 5.2 X10^3/uL (4.5-11.0)
--- NOTE | 2022-01-14 08:34 | ED_ITS ---
HPI - Chest Pain General Chief Complaint: Chest Pain Stated Complaint: High bp, chest pains Time Seen by Provider: 01/14/22 08:23 Source: patient Mode of arrival: Family Vehicle Limitations: no limitations History of Present Illness HPI narrative: This is a 66-year-old female with history of anxiety and intermittent hypertension on propranolol as needed only. Patient states for the last several days she is had elevated blood pressures intermittently. Her peaks have been 180 systolic, she appears to run about 140-150 overall. She states this is atypical for her but she will often have spikes. She is had quite a bit of stressors she states she is very to an alcoholic and things have been more stressful lately. She finds running 3-4 miles is quite helpful. Today she noted her blood pressure was 180 systolic, she took a bath to try to bring it down she felt little bit dizzy but no syncope. She states she developed a little bit of substernal right-sided chest discomfort that resolved, she states it was worse with movement such as moving her chest. More comfortable if she was still. Is not reported as exertional. She was not short of breath, no lightheadedness or passing out, no nausea or vomiting, no diaphoresis, no diarrhea, constipation, dysuria urgency or frequency. No swelling in her e xtremities. She saw Cardiology last year for intermittent hives in her blood pressure had stress testing and workup and was cleared. She denies any surgical history. She is allergic to amoxicillin. No tobacco, alcohol or illicit. She does meet with [facility] representatives which she finds helpful. She is interested in counseling. Related Data Home Medications Medication Instructions Recorded Confirmed COENZYME Q10/VITAMIN E (CO-Q-10 100 mg PO QDAY ##0 09/20/12 09/22/20 100mg) B12 500 mcg PO DAILY 12/26/18 09/22/20 cholecalciferol (vitamin D3) 50 2,000 unit PO DAILY 12/26/18 09/22/20 mcg (2,000 unit) tablet (Vitamin D3) Allergies Allergy/AdvReac Type Severity Reaction Status Date / Time No Known Drug Allergies Allergy Verified 01/14/22 07:47 Review of Systems Review of Systems ROS Unobtainable: All systems reviewed & are unremarkable except as noted in HPI and below Patient History Medical History Patient denies medical problems Social History household members: spouse Smoking Status: Never smoker Smoking Status: Never smoker alcohol intake frequency: 0-2 drinks per day Substance Use Type: does not use Exam Narrative Exam Narrative: GENERAL: Alert and oriented x three, female in mild distress. HEENT: Head normocephalic, atraumatic, EOMI, pupils reactive, face symmetric, moist mucous membranes NECK: Supple, full range of motion CARDIOVASCULAR: Regular rate and rhythm without murmurs, rubs or gallops. No JVD. No swelling bilateral lower extremities. RESPIRATORY: Breath sounds equal bilaterally, no wheezes rales or rhonchi. No tachypnea or accessory muscle use. ABDOMEN: Soft, nontender. Normoactive bowel sounds all 4 quadrants. No guarding or rebound, rigidity, no mass : No CVA tenderness EXTREMITIES: Normal range of motion, no clubbing or edema. Neurovascularly intact NEUROLOGICAL: Cranial nerves II through XII grossly intact. Moving all extremities SKIN: Warm, dry, no petechiae, no rashes or lesions. Initial Vital Signs Initial Vital Signs: Vital Signs Temperature 97.7 F 01/14/22 07:40 Pulse Rate 65 01/14/22 07:40 Respiratory Rate 18 01/14/22 07:40 Blood Pressure 185/103 H 01/14/22 07:40 Pulse Oximetry 98 01/14/22 07:40 Oxygen Delivery Method 01/14/22 07:40 Scores HEART Score Heart Score history: Slightly Suspicious Heart Score EKG: Non-Specific repolarization disturbance Heart Score Age: > or = 65 years old Heart Score risk factors: No known risk factors Heart Score troponin: < or = to normal limit Heart Score Total: 3 Course Orders Ordered: ED Orders 01/14/22 07:45 Complete Blood Count AUTO DIFF Stat Comprehensive Metabolic Panel Stat Lipase Stat Magnesium Stat Troponin & CK Cardiac Panel Stat 01/14/22 07:46 XR chest 1V Stat EKG-12 Lead Stat 01/14/22 09:36 EKG-12 Lead Stat 01/14/22 10:00 Trop I [Troponin I] Stat Vital Signs Vital signs: Vital Signs - 8 hr 01/14/22 07:40 01/14/22 07:43 01/14/22 08:00 Temperature 97.7 F Pulse Rate 65 64 Respiratory Rate 18 Blood Pressure 185/103 H 151/88 H Pulse Oximetry 98 99 Oxygen Delivery Method Room Air 01/14/22 08:00 01/14/22 08:30 01/14/22 08:30 Temperature Pulse Rate 54 L 49 L Respiratory Rate 15 15 Blood Pressure 139/73 Pulse Oximetry 99 99 Oxygen Delivery Method 01/14/22 09:00 01/14/22 09:00 01/14/22 09:30 Temperature Pulse Rate 46 L Respiratory Rate 17 Blood Pressure 135/76 153/94 H Pulse Oximetry 98 Oxygen Delivery Method 01/14/22 09:30 01/14/22 10:00 01/14/22 10:01 Temperature Pulse Rate 55 L 49 L Respiratory Rate 25 H 21 Blood Pressure 135/67 Pulse Oximetry 98 99 Oxygen Delivery Method 01/14/22 10:01 01/14/22 10:30 01/14/22 10:30 Temperature Pulse Rate 51 L 45 L Respiratory Rate 12 14 Blood Pressure 138/72 Pulse Oximetry 99 99 Oxygen Delivery Method MDM - Chest Pain Lab Data Result diagrams: 01/14/22 07:45 01/14/22 07:45 Labs: Lab Results 01/14/22 01/14/22 01/14/22 Range/Units 07:45 07:45 10:00 WBC 5.2 (4.5-11.0) X10^3/uL RBC 4.55 (4.0-5.2) X10^6/uL Hgb 13.9 (12.0-16.0) g/dL Hct 41.8 (36-46) % MCV 91.9 (80-100) fL MCH 30.6 (26-34) PG MCHC 33.3 (30-36) % RDW 14.0 (11.6-14.8) % Plt Count 275 (150-400) X10^3/uL Neut % (Auto) 59.5 (50-75) % Lymph % (Auto) 26.8 (25-40) % [place] % (Auto) 10.9 (3-14) % Eos % (Auto) 2.0 (2-4) % Baso % (Auto) 0.8 (0-2) % Neut # (Auto) 3100 (9594-9643) /uL Lymph # (Auto) 1400 (2115-6436) /uL [place] # (Auto) 600 (0-900) /uL Eos # (Auto) 100 (0-450) /uL Baso # (Auto) 0 (0-100) /uL Sodium 138 (137-145) mmol/L Potassium 4.7 (3.4-5.1) mmol/L Chloride 106 (98-107) mmol/L Carbon Dioxide 30 (22-32) mmol/L BUN 17 (7-17) mg/dL Creatinine 0.71 (0.52-1.04) mg/dL Estimated GFR > 60 (>60) mL/min BUN/Creatinine Ratio 23.9 H (6-22) Glucose 104 (80-110) mg/dL Calcium 8.5 (8.4-10.2) mg/dL Magnesium 2.2 (1.6-2.3) mg/dL Total Bilirubin 0.9 (0.2-1.3) mg/dL AST 37 H (14-36) IU/L ALT 19 (<35) IU/L Alkaline Phosphatase 61 (38-126) U/L Total Creatine Kinase 226 H (30-135) U/L CK-MB (CK-2) 2.30 (<2.37) ng/mL CK-MB (CK-2) Rel Index 1.0 L (1.5-5.0) % Troponin I 0.015 < 0.012 (0.01-0.034) ng/mL Total Protein 7.5 (6.3-8.2) g/dL Albumin 4.2 (3.5-5.0) g/dL Globulin 3.3 (1.7-4.1) g/dL Albumin/Globulin Ratio 1.3 (1.0-2.8) Lipase 66 (23-300) U/L Imaging Data Chest x-ray: Radiologist's Impression: No acute process. ECG Data Attestation: I personally reviewed and interpreted this ECG as follows: Interpretation: Sinus rhythm premature atrial complexes rate of 64, MT 178 QRS 86 and QTC 431. No acute ST elevation depression noted. Patient's V4 V5 C6 QRS is now inverted rather than upright. No other changes appreciated. No ST changes appreciated. This is comparison to prior from 09/22/2020. EKG 2. Sinus bradycardia rate of 47 MT 182 QRS is 74 QTC 400. Sinus bradycardia premature atrial complexes. Patient does not have any acute ST changes appreciated. No dynamic changes. MDM Narrative Medical decision making narrative: This is a 66-year-old female who presents with intermittent hives in her blood pressure maximum of 180 she is 130s here but initially was 185. Patient has had stress testing in the past year and runs regularly without symptoms. She is been quite anxious and stressed. Her chest x-ray, EKG do not show significant change, no other testing shows abnormalities. COVID swab is negative. Patient has quite a bit anxiety and stress in her life in his quite anxious about her blood pressure although she is only intermittently high. She is propranolol that she takes as needed for anxiety but does seems to be helpful her blood pressure discussed she can take this more regularly for the short term if her blood pressures are persisting she may need to be on a daily medication. She is also open to in interested in seeking counseling. She is not suicidal homicidal or having any other significant risk factors at this time. Discharge Plan Departure Patient Disposition: Home Clinical Impression: Intermittent hypertension Instructions: High Blood Pressure Activity Restrictions/Additional Instructions: Please follow-up with your physician for recheck if persistent elevated blood pressures you may need to be on a daily medication. You can take your propranolol if you noticed your systolic blood pressure is persistently elevated greater than 150 or 160 daily. Please return for worsening symptoms, new or worsening chest pain, shortness of breath, lightheadedness or passing out, persistent vomiting, swelling of extremities or other new or concerning symptoms. Prescriptions: No Action COENZYME Q10/VITAMIN E (CO-Q-10 100mg) 100 mg PO QDAY Qty: 0 cholecalciferol (vitamin D3) [Vitamin D3] 2,000 unit Tablet 2,000 unit PO DAILY B12 500 mcg PO DAILY Referrals: Dara Maddox ARNP [Primary Care Provider] - Visit Report Forms: Patient Portal/API
[2022-01-14 10:37] LABS: Troponin I < 0.012 ng/mL (0.01-0.034)
== END 2022-01-14 11:45 | disposition home or self-care (01) ==
PROVIDERS: Emergency Provider Emergency Medicine; PCP Internal Medicine
DX: I10 Essential (primary) hypertension (principal); F41.9 Anxiety disorder, unspecified
CPT/HCPCS: 36415; 71045; 80053; 82550; 82553; 83690; 83735; 84484; 85025; 93005; 99283; 99284

== ENCOUNTER → 2022-05-18 08:04 | Outpatient (CLI) | payer MEDICARE, OTHER, SELFPAY ==
--- NOTE | 2022-05-18 | DI.MG.S_ITS ---
BILATERAL DIGITAL SCREENING MAMMOGRAM 3D/2D WITH CAD: 05/18/2022 CLINICAL: Routine screening. Comparison is made to exam dated: 09/26/2017 mammogram - [facility]. Both breasts are heterogeneously dense, which may obscure small masses (category c / 51-75% glandular tissue). Current study was also evaluated with a Computer Aided Detection (CAD) system. There are benign calcifications in both breasts. No significant masses, calcifications, or other findings are seen in either breast. There has been no significant interval change. IMPRESSION: BENIGN There is no mammographic evidence of malignancy. A 1 year screening mammogram is recommended. Based on the Tyrer Cuzick model (a risk assessment model) the patient's lifetime risk is 7.2% and her 10 year risk is 3.8%. According to the ACR, ACS, and NCCN guidelines, an annual breast MRI exam along with mammogram is recommended if the patient's lifetime risk is 20% or greater. This exam was interpreted at Station ID: [id number]. NOTE: For mammograms, a report in lay terms will be sent to the patient. Approximately 15% of breast malignancies will not be visualized mammographically. In the management of a palpable breast mass, a negative mammogram must not discourage biopsy of a clinically suspicious lesion. Electronically Signed By: Gopi turner/lili:05/18/2022 09:08:48 letter sent: Normal Exam ACR BI-RADS Category 2: Benign Finding(s) 3342F
== END ==
PROVIDERS: PCP Internal Medicine; Referring Provider Internal Medicine; Visit Provider Internal Medicine
DX: Z12.31 Encounter for screening mammogram for malignant neoplasm of breast (principal)
CPT/HCPCS: 77063; 77067

== ENCOUNTER 2022-07-13 11:54 | Emergency (ER) | payer MEDICARE, OTHER, SELFPAY ==
[2022-07-13 12:25] VITALS: BP 168/80; PULSE 64; RESP 12; TEMP 36.2; O2SAT 100
--- NOTE | 2022-07-13 12:30 | PC.NURSE ---
after triage pt states she feels much improved and wants to follow up with her PCP. States she will return if any worsening/ concerns. Neuro intact.
== END 2022-07-13 12:30 | disposition left against medical advice (07) ==
PROVIDERS: Emergency Provider Emergency Medicine; PCP Internal Medicine
CPT/HCPCS: 99281

== ENCOUNTER → 2022-10-06 10:43 | Outpatient (CLI) | payer MEDICARE, OTHER, SELFPAY ==
--- NOTE | 2022-10-06 11:00 | DI.DEXA.S_ITS ---
Bone Density Report Name: ROBIN LOPEZ Age: 66 Sex: Female Ethnicity: White Date of : 1955 Indication: postmenopausal osteoporosis; Referring Provider: ANTHONY JENSEN Study: Bone densitometry was performed. Exam Date: October 06, 2022 Accession number: [id number] Bone Density: Region BMD T-score Z-score Classification AP Spine(L1-L4) 0.653 -3.6 -1.6 Osteoporosis Femoral Neck (Left) 0.544 -2.7 -1.1 Osteoporosis Total Hip (Left) 0.682 -2.1 -0.7 Osteopenia Femoral Neck (Right) 0.550 -2.7 -1.0 Osteoporosis Total Hip (Right) 0.702 -2.0 -0.6 Osteopenia Total Hip Mean 0.692 -2.1 -0.7 Osteopenia World Health Organization criteria for BMD impression classify patients as: Normal (T-score at or above -1.0), Osteopenia (T-score between -1.0 and -2.5), or Osteoporosis (T-score at or below -2.5). 10-year Fracture Risk: FRAX not reported because: Some T-score for Spine Total or Hip Total or Femoral Neck at or below -2.5 Previous Exams: -- Region Exam Age BMD T-score BMD Change BMD Change Date g/cm2 vs Baseline vs Previous -- AP Spine (L1-L4) 10/06/2022 66 0.653 -3.6 -0.079 (-10.8%)# -0.079 (-10.8%)# 08/28/2018 62 0.733 -2.9 Total Hip(Left) 10/06/2022 66 0.682 -2.1 0.000 (0.0%)# 0.000 (0.0%)# 08/28/2018 62 0.682 -2.1 Total Hip(Right) 10/06/2022 66 0.702 -2.0 -0.001 (-0.1%)# -0.001 (-0.1%)# 08/28/2018 62 0.703 -2.0 -- *Denotes significance at 95% confidence level, LSC for AP Spine = 0.022 g/cm2, LSC for Total Hip = 0.027 g/cm2 # Denotes dissimilar scan types or analysis methods Impression: The patient has osteoporosis, based on the Total Spine T-score. No significant bone loss was observed. Discussion: INCREASED RISK OF FRACTURE. BONE DENSITY IS UNDESIRABLY LOW AT ONE OR MORE SKELETAL SITES, CONSISTENT WITH POSTMENOPAUSAL OSTEOPOROSIS. This patient's lowest T-score meets the World Health Organization's (WHO) criteria for osteoporosis at one or more sites (T-score -2.5 or below). In untreated patients, the risk of osteoporotic fracture increases approximately two-fold for each 1.0 SD decrease in T-score. Low bone density is not the only risk factor for fracture; also consider factors such as patient's age, frailty or poor health, risk of falling, risk of injury, previous osteoporotic fracture, family history of osteoporosis, cigarette smoking, low body weight, etc. Not everyone with low bone mineral density has osteoporosis; osteomalacia and other metabolic bone disorders should also be considered. Patients who have osteoporosis should be evaluated for specific diseases and conditions (secondary causes) that may cause or contribute to bone loss. The [place] [employer] Endocrinologists (AACE) and National Osteoporosis Foundation (NOF) recommend pharmacologic intervention for all postmenopausal women whose T-score is in this range. The patient should follow a healthful lifestyle (good nutrition with adequate calcium and vitamin D, and appropriate weight-bearing exercise). Follow-Up: Consider a repeat BMD and Vertebral Fracture Assessment (VFA) exam in 2 years or sooner if medically necessary, to reassess this patient's status. Reported by: BENNIE CASTORENA M.D. on 10/06/2022 11:08:00 AM.
== END ==
PROVIDERS: PCP Internal Medicine; Referring Provider Internal Medicine; Visit Provider Internal Medicine
DX: Z78.0 Asymptomatic menopausal state (principal); M81.0 Age-related osteoporosis without current pathological fracture
CPT/HCPCS: 77080

== ENCOUNTER → 2022-11-02 11:56 | Outpatient (CLI) | payer MEDICARE, OTHER, SELFPAY ==
--- NOTE | 2022-11-02 11:59 | DI.RAD.S_ITS ---
PROCEDURE: XR ANKLE LT MIN 3V INDICATIONS: LT ANKLE PAIN TECHNIQUE: 3 views of the ankle were acquired. COMPARISON: None. FINDINGS: Bones: No fractures or dislocations. Ankle mortise is normally aligned. No suspicious bony lesions. Soft tissues: No tibiotalar joint effusion. Achilles tendon appears normal. IMPRESSION: Unremarkable radiographic examination of left ankle. Dictated by: Isac Sosa M.D. on 11/02/2022 at 15:07 Approved by: Isac Sosa M.D. on 11/02/2022 at 15:09
== END ==
PROVIDERS: PCP Internal Medicine; Referring Provider Internal Medicine; Visit Provider Internal Medicine
DX: M25.572 Pain in left ankle and joints of left foot (principal)
CPT/HCPCS: 73610

== ENCOUNTER 2023-04-14 12:30 | Outpatient (RCR) | payer MEDICARE, OTHER, SELFPAY ==
--- NOTE | 2023-01-26 17:00 | PT.OIE ---
Current Diagnoses Urge incontinence (01/26/23) Pelvic muscle wasting (01/26/23) Unspecified urinary incontinence (01/26/23) Nocturia (01/26/23) Past Medical History (Last Reviewed 01/14/22 @ 09:48 by Kirsten Thomas DO) Patient denies medical problems Visit Care Team Role Provider Type JOSE ROBERTO Ehcevarria Attending Provider Advanced Rn Social Services Family Provider Primary Care Provider Referring Provider Specialty: Family Practice Address: [address] [place] [address] [place], [facility] Email: [email or web address] Physical Therapy Initial Evaluation PT-OP-A Visit Information Start: 01/26/23 07:57 Freq: Status: Active Protocol: Document 01/26/23 10:30 [facility] (Rec: 01/26/23 13:25 [facility] [id number]) Out-Patient Physical Therapy Visit Information Visit Information Visit Type Initial Evaluation Visit Start Time 10:30 Visit Stop Time 11:15 Total Visit Minutes 45 Visit Number 1 Evaluation Information Evaluation Date 01/26/23 PT-OP-B Current Condition Start: 01/26/23 07:57 Freq: Status: Active Protocol: Document 01/26/23 10:30 [facility] (Rec: 01/26/23 11:15 [facility] [id number]) Current Condition History of Current Condition Onset Date chronic Current Complaints intermittent incontinence History of Current Condition symptoms started after childbirth 30 years ago, she will have a sudden loss of urine when either super stressed or very tired. The most recent episode was in the last 6 months. She needed to go to the bathroom and then didn't make it. She will experience little dribbles in the am when she gets up and then periodically throughout the day she will experience little dribbles. She sleeps approx 3 hours and then wakes up to void. She would like to be able to sleep through the night. Treatment Goals Patient/Caregiver Goals pts goals include decreasing urinary incontinence and avoiding episode of sudden loss of urine PT-OP-C Subjective Start: 01/26/23 07:57 Freq: Status: Active Protocol: Document 01/26/23 10:30 [facility] (Rec: 01/27/23 14:42 [facility] [id number]) Patient Questionnaires Pelvic Pain and Urgency/Frequency Patient Symptom Scale Pelvic Pain Score 8 PT-OP-I Pelvic Floor Start: 01/26/23 07:57 Freq: Status: Active Protocol: Document 01/26/23 10:30 [facility] (Rec: 01/27/23 14:42 [facility] [id number]) Pelvic Floor Assessment Urine Pelvic Floor Surgery No Urinary Symptoms Urge Sensation Leakage Size Small Other Leakage Causes pt has had two episodes of full loss of urine but usually has just a few drops throughout the day Leaks Per Day 2 Nocturia 2 Pelvic Clock Pelvic Clock 6-9 Guarding,Tightness Contraction Ability Voluntary Contraction Weak Voluntary Relaxation Weak Manual Muscle Testing Left 3 Manual Muscle Testing Right 3 Manual Muscle Testing Anterior 3 Manual Muscle Testing Posterior 3 Muscle Endurance (Seconds) 4 Comments Pelvic Floor Comments pt has difficulty relaxing the right lateral wall of the levator ani and is guarded, she lacks endurance to sustain a contraction more than 4 seconds PT-OP-M Strength Start: 01/26/23 07:57 Freq: Status: Active Protocol: Document 01/26/23 10:30 [facility] (Rec: 01/27/23 14:42 [facility] [id number]) Trunk Strength Trunk Manual Muscle Testing Testing Position Supine Flexion 3 Fair Core Stabilization decreased transverse abdominal core stabilization PT-OP-Q Treatments Start: 01/26/23 07:57 Freq: Status: Active Protocol: Document 01/26/23 10:30 [facility] (Rec: 01/26/23 13:25 [facility] [id number]) Therapeutic Exercises Supine Exercises pelvic floor long holds Reps/Minutes 10 reps holding 10 seconds and resting 10 seconds Self-Care/Home Management Treatment Education Patient Education Home Exercise Program Other Education urge deference technique and bladder retraining PT-OP-T Assessment and Plan Start: 01/26/23 07:57 Freq: Status: Active Protocol: Document 01/26/23 10:30 [facility] (Rec: 01/27/23 14:42 [facility] [id number]) Physical Therapy Assessment Rehab Potential Rehabilitation Potential Excellent Evaluation Complexity Number of Personal Factors/Comorbidities 0 Number of Body Systems Impaired 1-2 Clinical Presentation at Evaluation Stable Goals 3 Impairment urinary urge symptoms with urinary leaking Short Term Goal (STG) Farhana is educated on the urge deference technique and bladder retraining STG Duration 3 weeks Attendant Sales Goal (LTG) Farhana is no longer experincing leakage and urgency is much decreased LTG Duration 12 weeks 2 Impairment nocturia with Farhana waking 3 times per night to void Alf Goal (LTG) Farhana has reduced her nocturia down to 1 time or less per night to void LTG Duration 12 weeks 1 Impairment Farhana presents with decreased endurance of the pelvic floor with ability to sustain a pelvic floor contraction for 4 seconds only in supine Short Term Goal (STG) Farhana presents with improved endurance of the pelvic floor and is able to sustain a pelvic floor contraction x 10 seconds in supine STG Duration 5 weeks Attendant Sales Goal (LTG) Farhana is able to progress to standing pelvic floor contractions and is able to sustain a contraction x 5 -10 seconds in standing LTG Duration 12 weeks Assessment Summary Assessment Farhana is a 67 year old female referred to PT with urgency and urinary incontinence. She reports she has been experiencing urinary leakage that consists of losing a few drops of urine for over 30 years since the delivery of her daughter. Farhana notes though that she has had two episodes of complete loss of urine and this is what brings her in to PT. She also is experiencing nocturia x 3 and would like to be able to sleep through the night. With exam today Farhana is able to facilitate all aspects of the pelvic clock. She test 3/ 5 MMT for all rizzo. She is tighter and presents with some muscle guarding on the right lateral wall from 6-9 on the pelvic clock. Farhana has difficulty relaxing this region. She lacks the ability to sustain a pelvic floor contraction more than 4 seconds. Farhana will benefit from pelvic floor therapy both for improving endurance but also for relaxed awareness of her pelvic floor at rest to fully be able to empty her bladder. She has a history of drinking 8 cups of coffee per day and she reports she still drinks this amount however she has switched to decaf. She will be educated on bladder irritants as well as urge deference technique and bladder retraining. Physical Therapy Plan Frequency and Duration Frequency of Treatment 1x/Week Duration of treatment (weeks) 12 Plan of Care Start Date 01/26/23 Plan of Care End Date 04/20/23 Therapeutic Interventions Therapeutic Interventions Home Exercise Program, Neuromuscular Re-education, Patient/Caregiver Education, Self-Care/Home Management, Therapeutic Exercises Modalities Biofeedback Next Visit Focus/Plan Next Note Type Treatment Note Next Visit Plan Begin EMG biofeedback next visit for pelvic floor endurance training and strengthening, work on stretches for the hips to help with full pelvic floor relaxation as well.
--- NOTE | 2023-01-26 17:00 | PT.OPPOC ---
Physical, Occupational & Speech Therapy At [facility] Current Diagnoses Urge incontinence (01/26/23) Pelvic muscle wasting (01/26/23) Unspecified urinary incontinence (01/26/23) Nocturia (01/26/23) Visit Care Team Role Provider Type JOSE ROBERTO Echevarria Attending Provider Advanced Learning Support Resource Room Teacher Family Provider Primary Care Provider Referring Provider Specialty: Family Practice Address: [address] [place] [address], [facility] [place], [address] Email: [email or web address] Plan Of Care PT-OP-T Assessment and Plan Start: 01/26/23 07:57 Freq: Status: Active Protocol: Document 01/26/23 10:30 [facility] (Rec: 01/27/23 14:42 [facility] [id number]) Physical Therapy Assessment Rehab Potential Rehabilitation Potential Excellent Evaluation Complexity Number of Personal Factors/Comorbidities 0 Number of Body Systems Impaired 1-2 Clinical Presentation at Evaluation Stable Goals 3 Impairment urinary urge symptoms with urinary leaking Short Term Goal (STG) Farhana is educated on the urge deference technique and bladder retraining STG Duration 3 weeks Mcc Goal (LTG) Farhana is no longer experiencing leakage and urgency is much decreased LTG Duration 12 weeks 2 Impairment nocturia with Farhana waking 3 times per night to void Manager Sas Goal (LTG) Farhana has reduced her nocturia down to 1 time or less per night to void LTG Duration 12 weeks 1 Impairment Farhana presents with decreased endurance of the pelvic floor with ability to sustain a pelvic floor contraction for 4 seconds only in supine Short Term Goal (STG) Farhana presents with improved endurance of the pelvic floor and is able to sustain a pelvic floor contraction x 10 seconds in supine STG Duration 5 weeks Mcc Goal (LTG) Farhana is able to progress to standing pelvic floor contractions and is able to sustain a contraction x 5 -10 seconds in standing LTG Duration 12 weeks Assessment Summary Assessment Farhana is a 67 year old female referred to PT with urgency and urinary incontinence. She reports she has been experiencing urinary leakage that consists of losing a few drops of urine for over 30 years since the delivery of her daughter. Farhana notes though that she has had two episodes of complete loss of urine and this is what brings her in to PT. She also is experiencing nocturia x 3 and would like to be able to sleep through the night. With exam today Farhana is able to facilitate all aspects of the pelvic clock. She test 3/ 5 MMT for all rizzo. She is tighter and presents with some muscle guarding on the right lateral wall from 6-9 on the pelvic clock. Farhana has difficulty relaxing this region. She lacks the ability to sustain a pelvic floor contraction more than 4 seconds. Farhana will benefit from pelvic floor therapy both for improving endurance but also for relaxed awareness of her pelvic floor at rest to fully be able to empty her bladder. She has a history of drinking 8 cups of coffee per day and she reports she still drinks this amount however she has switched to decaf. She will be educated on bladder irritants as well as urge deference technique and bladder retraining. Physical Therapy Plan Frequency and Duration Frequency of Treatment 1x/Week Duration of treatment (weeks) 12 Plan of Care Start Date 01/26/23 Plan of Care End Date 04/20/23 Therapeutic Interventions Therapeutic Interventions Home Exercise Program, Neuromuscular Re-education, Patient/Caregiver Education, Self-Care/Home Management, Therapeutic Exercises Modalities Biofeedback Next Visit Focus/Plan Next Note Type Treatment Note Next Visit Plan Begin EMG biofeedback next visit for pelvic floor endurance training and strengthening, work on stretches for the hips to help with full pelvic floor relaxation as well. Plan of Care Dates Plan of Care Start Date 01/26/23 Plan of Care End Date 04/20/23 Electronically Signed by: Katie Marvin, PT 01/27/23 1678 If you are in agreement with this Plan of Care, please return a signed and dated copy. I have reviewed this Plan of Care and certify that the skilled therapy services above are required to meet the patient?s needs. Physician Signature Date Printed Name and Credentials Clinical Instructor Signature Printed Name and Credentials
--- NOTE | 2023-02-02 12:02 | PT.OTN ---
Current Diagnoses Urge incontinence (02/02/23) Pelvic muscle wasting (02/02/23) Unspecified urinary incontinence (02/02/23) Nocturia (02/02/23) Physical Therapy Treatment Note PT-OP-A Visit Information Start: 01/26/23 07:57 Freq: Status: Active Protocol: Document 02/02/23 11:11 [facility] (Rec: 02/02/23 12:02 [facility] [id number]) Out-Patient Physical Therapy Visit Information Visit Information Visit Type Treatment Note Visit Start Time 11:11 Visit Stop Time 11:50 Total Visit Minutes 44 Visit Number 2 Evaluation Information Evaluation Date 01/26/23 PT-OP-B Current Condition Start: 01/26/23 07:57 Freq: Status: Active Protocol: Document 01/26/23 10:30 [facility] (Rec: 01/26/23 11:15 [facility] [id number]) Current Condition History of Current Condition Onset Date chronic Current Complaints intermittent incontinence History of Current Condition symptoms started after childbirth 30 years ago, she will have a sudden loss of urine when either super stressed or very tired. The most recent episode was in the last 6 months. She needed to go to the bathroom and then didn't make it. She will experience little dribbles in the am when she gets up and then periodically throughout the day she will experience little dribbles. She sleeps approx 3 hours and then wakes up to void. She would like to be able to sleep through the night. Treatment Goals Patient/Caregiver Goals pts goals include decreasing urinary incontinence and avoiding episode of sudden loss of urine PT-OP-C Subjective Start: 01/26/23 07:57 Freq: Status: Active Protocol: Document 02/02/23 11:11 [facility] (Rec: 02/02/23 12:02 [facility] [id number]) OP-PT Subjective Patient Comments Patient Comments pt notes the urge technque seemed to help PT-OP-I Pelvic Floor Start: 01/26/23 07:57 Freq: Status: Active Protocol: Document 01/26/23 10:30 [facility] (Rec: 01/27/23 14:42 [facility] [id number]) Pelvic Floor Assessment Urine Pelvic Floor Surgery No Urinary Symptoms Urge Sensation Leakage Size Small Other Leakage Causes pt has had two episodes of full loss of urine but usually has just a few drops throughout the day Leaks Per Day 2 Nocturia 2 Pelvic Clock Pelvic Clock 6-9 Guarding,Tightness Contraction Ability Voluntary Contraction Weak Voluntary Relaxation Weak Manual Muscle Testing Left 3 Manual Muscle Testing Right 3 Manual Muscle Testing Anterior 3 Manual Muscle Testing Posterior 3 Muscle Endurance (Seconds) 4 Comments Pelvic Floor Comments pt has difficulty relaxing the right lateral wall of the levator ani and is guarded, she lacks endurance to sustain a contraction more than 4 seconds PT-OP-M Strength Start: 01/26/23 07:57 Freq: Status: Active Protocol: Document 01/26/23 10:30 [facility] (Rec: 01/27/23 14:42 [facility] [id number]) Trunk Strength Trunk Manual Muscle Testing Testing Position Supine Flexion 3 Fair Core Stabilization decreased transverse abdominal core stabilization PT-OP-Q Treatments Start: 01/26/23 07:57 Freq: Status: Active Protocol: Document 02/02/23 11:11 [facility] (Rec: 02/02/23 12:02 [facility] [id number]) Therapeutic Exercises Supine Exercises quick pelvic floor contractions Reps/Minutes x 10 reps holding 2 sec and resting 2 sec supine pelvic floor stretch Reps/Minutes hold 1-2 minutes ball squeeze Reps/Minutes x 10 reps Comments 15.0 average and 41 uv max piriformis stretch Reps/Minutes hold 1-2 min pelvic floor long holds Reps/Minutes 10 reps holding 10 seconds and resting 10 seconds Comments 8.1 average and max is 27 Self-Care/Home Management Treatment Education Patient Education Home Exercise Program Other Education urge deference technique and bladder retraining, pt is more aware of drinking water PT-OP-T Assessment and Plan Start: 01/26/23 07:57 Freq: Status: Active Protocol: Document 02/02/23 11:11 [facility] (Rec: 02/02/23 12:02 [facility] [id number]) Physical Therapy Assessment Goals 3 Impairment urinary urge symptoms with urinary leaking Short Term Goal (STG) Farhana is educated on the urge deference technique and bladder retraining STG Duration 3 weeks Insurance Risk Surveyor Goal (LTG) Farhana is no longer experincing leakage and urgency is much decreased LTG Duration 12 weeks 2 Impairment nocturia with Farhana waking 3 times per night to void Half-Way Goal (LTG) Farhana has reduced her nocturia down to 1 time or less per night to void LTG Duration 12 weeks 1 Impairment Farhana presents with decreased endurance of the pelvic floor with ability to sustain a pelvic floor contraction for 4 seconds only in supine Short Term Goal (STG) Farhana presents with improved endurance of the pelvic floor and is able to sustain a pelvic floor contraction x 10 seconds in supine STG Duration 5 weeks Half-Way Goal (LTG) Farhana is able to progress to standing pelvic floor contractions and is able to sustain a contraction x 5 -10 seconds in standing LTG Duration 12 weeks Assessment Summary Assessment I worked with Farhana today on pelvic floor with EMG biofeedback for improved awareness of the sensation of pelvic floor contraction. She has difficulty feeling her contractions. Endurance is difficult to sustain and adductor assist did help with sustaining a pelvic floor contraction. Farhana has been successful with urge deference technique and she is working on increasing water intake. She was given a home program with pelvic floor stretches as well as long holds, quick flicks, adductor assist today Physical Therapy Plan Frequency and Duration Frequency of Treatment 1x/Week Duration of treatment (weeks) 12 Plan of Care Start Date 01/26/23 Plan of Care End Date 04/20/23 Next Visit Focus/Plan Next Note Type Treatment Note Next Visit Plan Continue with EMG biofeedback, add in clam shells with theraband next visit, extend time between voids with urge deference technique, stretches for the pelvic floor
--- NOTE | 2023-02-08 10:36 | PT.OTN ---
Current Diagnoses Urge incontinence (02/08/23) Pelvic muscle wasting (02/08/23) Unspecified urinary incontinence (02/08/23) Nocturia (02/08/23) Physical Therapy Treatment Note PT-OP-A Visit Information Start: 01/26/23 07:57 Freq: Status: Active Protocol: Document 02/08/23 09:36 [facility] (Rec: 02/08/23 10:35 [facility] [id number]) Out-Patient Physical Therapy Visit Information Visit Information Visit Type Treatment Note Visit Start Time 09:35 Visit Stop Time 10:15 Total Visit Minutes 40 Visit Number 3 PT-OP-B Current Condition Start: 01/26/23 07:57 Freq: Status: Active Protocol: Document 01/26/23 10:30 [facility] (Rec: 01/26/23 11:15 [facility] [id number]) Current Condition History of Current Condition Onset Date chronic Current Complaints intermittent incontinence History of Current Condition symptoms started after childbirth 30 years ago, she will have a sudden loss of urine when either super stressed or very tired. The most recent episode was in the last 6 months. She needed to go to the bathroom and then didn't make it. She will experience little dribbles in the am when she gets up and then periodically throughout the day she will experience little dribbles. She sleeps approx 3 hours and then wakes up to void. She would like to be able to sleep through the night. Treatment Goals Patient/Caregiver Goals pts goals include decreasing urinary incontinence and avoiding episode of sudden loss of urine PT-OP-C Subjective Start: 01/26/23 07:57 Freq: Status: Active Protocol: Document 02/02/23 11:11 [facility] (Rec: 02/02/23 12:02 [facility] [id number]) OP-PT Subjective Patient Comments Patient Comments pt notes the urge technque seemed to help PT-OP-I Pelvic Floor Start: 01/26/23 07:57 Freq: Status: Active Protocol: Document 01/26/23 10:30 [facility] (Rec: 01/27/23 14:42 [facility] [id number]) Pelvic Floor Assessment Urine Pelvic Floor Surgery No Urinary Symptoms Urge Sensation Leakage Size Small Other Leakage Causes pt has had two episodes of full loss of urine but usually has just a few drops throughout the day Leaks Per Day 2 Nocturia 2 Pelvic Clock Pelvic Clock 6-9 Guarding,Tightness Contraction Ability Voluntary Contraction Weak Voluntary Relaxation Weak Manual Muscle Testing Left 3 Manual Muscle Testing Right 3 Manual Muscle Testing Anterior 3 Manual Muscle Testing Posterior 3 Muscle Endurance (Seconds) 4 Comments Pelvic Floor Comments pt has difficulty relaxing the right lateral wall of the levator ani and is guarded, she lacks endurance to sustain a contraction more than 4 seconds PT-OP-M Strength Start: 01/26/23 07:57 Freq: Status: Active Protocol: Document 01/26/23 10:30 [facility] (Rec: 01/27/23 14:42 [facility] [id number]) Trunk Strength Trunk Manual Muscle Testing Testing Position Supine Flexion 3 Fair Core Stabilization decreased transverse abdominal core stabilization PT-OP-Q Treatments Start: 01/26/23 07:57 Freq: Status: Active Protocol: Document 02/08/23 09:36 [facility] (Rec: 02/08/23 10:35 [facility] [id number]) Therapeutic Exercises Supine Exercises templates for eccentric control Reps/Minutes x 8 min quick pelvic floor contractions Comments 24 uv max supine pelvic floor stretch Reps/Minutes hold 1-2 minutes piriformis stretch Reps/Minutes hold 1-2 min pelvic floor long holds Reps/Minutes 10 reps holding 10 seconds and resting 10 seconds Comments 12.5 uv average and max 22.1 uv Sidelying Exercises clam shells with TB Equipment Used level 1 TB Reps/Minutes 2 x 10 reps Self-Care/Home Management Treatment Education Patient Education Home Exercise Program Other Education review of urge deference technique and bladder retraining PT-OP-T Assessment and Plan Start: 01/26/23 07:57 Freq: Status: Active Protocol: Document 02/08/23 09:36 [facility] (Rec: 02/08/23 10:35 [facility] [id number]) Physical Therapy Assessment Goals 3 Impairment urinary urge symptoms with urinary leaking Short Term Goal (STG) Farhana is educated on the urge deference technique and bladder retraining STG Duration 3 weeks Jail Goal (LTG) Farhana is no longer experincing leakage and urgency is much decreased LTG Duration 12 weeks 2 Impairment nocturia with Farhana waking 3 times per night to void Sandwich Machine Operator Goal (LTG) Farhana has reduced her nocturia down to 1 time or less per night to void LTG Duration 12 weeks 1 Impairment Farhana presents with decreased endurance of the pelvic floor with ability to sustain a pelvic floor contraction for 4 seconds only in supine Short Term Goal (STG) Farhana presents with improved endurance of the pelvic floor and is able to sustain a pelvic floor contraction x 10 seconds in supine STG Duration 5 weeks Jail Goal (LTG) Farhana is able to progress to standing pelvic floor contractions and is able to sustain a contraction x 5 -10 seconds in standing LTG Duration 12 weeks Assessment Summary Assessment Farhana is doing better with her ability to sustain a pelvic floor contraction as well as with her ability to work on bladder retraining. She will be out of town to be with her grandkids and will resume PT once back Physical Therapy Plan Frequency and Duration Frequency of Treatment 1x/Week Duration of treatment (weeks) 12 Plan of Care Start Date 01/26/23 Plan of Care End Date 04/20/23 Therapeutic Interventions Therapeutic Interventions Home Exercise Program, Neuromuscular Re-education, Patient/Caregiver Education, Self-Care/Home Management, Therapeutic Exercises Modalities Biofeedback Next Visit Focus/Plan Next Note Type Treatment Note Next Visit Plan Continue with EMG biofeedback progressing pelvic floor endurance and eccentric control
--- NOTE | 2023-03-24 10:15 | PT.OTN ---
Current Diagnoses Urge incontinence (03/24/23) Pelvic muscle wasting (03/24/23) Unspecified urinary incontinence (03/24/23) Nocturia (03/24/23) Physical Therapy Treatment Note PT-OP-A Visit Information Start: 01/26/23 07:57 Freq: Status: Active Protocol: Document 03/24/23 09:34 [facility] (Rec: 03/24/23 10:15 [facility] [id number]) Out-Patient Physical Therapy Visit Information Visit Information Visit Type Progress Note Visit Start Time 09:30 Visit Stop Time 10:10 Total Visit Minutes 40 Visit Number 4 PT-OP-B Current Condition Start: 01/26/23 07:57 Freq: Status: Active Protocol: Document 01/26/23 10:30 [facility] (Rec: 01/26/23 11:15 [facility] [id number]) Current Condition History of Current Condition Onset Date chronic Current Complaints intermittent incontinence History of Current Condition symptoms started after childbirth 30 years ago, she will have a sudden loss of urine when either super stressed or very tired. The most recent episode was in the last 6 months. She needed to go to the bathroom and then didn't make it. She will experience little dribbles in the am when she gets up and then periodically throughout the day she will experience little dribbles. She sleeps approx 3 hours and then wakes up to void. She would like to be able to sleep through the night. Treatment Goals Patient/Caregiver Goals pts goals include decreasing urinary incontinence and avoiding episode of sudden loss of urine PT-OP-C Subjective Start: 01/26/23 07:57 Freq: Status: Active Protocol: Document 03/24/23 09:34 [facility] (Rec: 03/24/23 10:15 [facility] [id number]) OP-PT Subjective Patient Comments Patient Comments pt notes she has been in [place] and hasn't been doing the exercises. She feels like the exercises help and she can tell she hasn't been doing them PT-OP-I Pelvic Floor Start: 01/26/23 07:57 Freq: Status: Active Protocol: Document 01/26/23 10:30 [facility] (Rec: 01/27/23 14:42 [facility] [id number]) Pelvic Floor Assessment Urine Pelvic Floor Surgery No Urinary Symptoms Urge Sensation Leakage Size Small Other Leakage Causes pt has had two episodes of full loss of urine but usually has just a few drops throughout the day Leaks Per Day 2 Nocturia 2 Pelvic Clock Pelvic Clock 6-9 Guarding,Tightness Contraction Ability Voluntary Contraction Weak Voluntary Relaxation Weak Manual Muscle Testing Left 3 Manual Muscle Testing Right 3 Manual Muscle Testing Anterior 3 Manual Muscle Testing Posterior 3 Muscle Endurance (Seconds) 4 Comments Pelvic Floor Comments pt has difficulty relaxing the right lateral wall of the levator ani and is guarded, she lacks endurance to sustain a contraction more than 4 seconds PT-OP-M Strength Start: 01/26/23 07:57 Freq: Status: Active Protocol: Document 01/26/23 10:30 [facility] (Rec: 01/27/23 14:42 [facility] [id number]) Trunk Strength Trunk Manual Muscle Testing Testing Position Supine Flexion 3 Fair Core Stabilization decreased transverse abdominal core stabilization PT-OP-Q Treatments Start: 01/26/23 07:57 Freq: Status: Active Protocol: Document 03/24/23 09:34 [facility] (Rec: 03/24/23 10:15 [facility] [id number]) Therapeutic Exercises Supine Exercises templates for eccentric control Reps/Minutes x 8 min quick pelvic floor contractions Reps/Minutes x 10 reps holding 2 sec and resting 2 sec Comments 53.0 max pt to work on standing pelvic floor contractions for home ball squeeze Supine Exercise Name holding pelvic floor long holds Reps/Minutes 10 reps holding 10 seconds and resting 10 seconds Comments 13.7 and max of 39.0 Sidelying Exercises clam shells with TB Sidelying Exercise Name HEP Self-Care/Home Management Treatment Education Patient Education Home Exercise Program Other Education review of urge deference technique and bladder retraining added in standing pelvic floor contractions to HEP PT-OP-T Assessment and Plan Start: 01/26/23 07:57 Freq: Status: Active Protocol: Document 03/24/23 09:34 [facility] (Rec: 03/24/23 10:15 [facility] [id number]) Physical Therapy Assessment Goals 3 Impairment urinary urge symptoms with urinary leaking Short Term Goal (STG) Farhana is educated on the urge deference technique and bladder retraining GOAL MET STG Duration 3 weeks Halfway Goal (LTG) Farhana is no longer experincing leakage and urgency is much decreased Excellent progress LTG Duration 12 2 Impairment nocturia with Farhana waking 3 times per night to void Halfway Goal (LTG) Farhana has reduced her nocturia down to 1 time or less per night to void as of 03/24/23 she is doing better with this and Farhana reports it now 0-1 time per night LTG Duration 12 weeks 1 Impairment Farhana presents with decreased endurance of the pelvic floor with ability to sustain a pelvic floor contraction for 4 seconds only in supine Short Term Goal (STG) Farhana presents with improved endurance of the pelvic floor and is able to sustain a pelvic floor contraction x 10 seconds in supine excellent progress STG Duration 5 weeks Halfway Goal (LTG) Farhana is able to progress to standing pelvic floor contractions and is able to sustain a contraction x 5 -10 seconds in standing Farhana is now staring to work on standing pelvic floor contractions LTG Duration 12 weeks Assessment Summary Assessment This is Farhana's 4th visit in PT. Farhana returns from her trip to [place] and notes she wasn't able to do her exercises as much when she was with her grand kids. She still shows increase in strength and endurance of pelvic floor is improving. Her nocturia is significantly reduced to 0-1 time per night and urgency is improving. Farhana would benefit from continued PT Physical Therapy Plan Frequency and Duration Frequency of Treatment 1x/Week Duration of treatment (weeks) 8 Plan of Care Start Date 03/24/23 Plan of Care End Date 05/19/23 Therapeutic Interventions Therapeutic Interventions Home Exercise Program, Neuromuscular Re-education, Patient/Caregiver Education, Self-Care/Home Management, Therapeutic Exercises Modalities Biofeedback Next Visit Focus/Plan Next Note Type Treatment Note Next Visit Plan Continue with EMG biofeedback progressing pelvic floor endurance and eccentric control, start to work on standing pelvic floor
--- NOTE | 2023-03-24 10:16 | PT.OPPOC ---
Physical, Occupational & Speech Therapy At [facility] Current Diagnoses Urge incontinence (03/24/23) Pelvic muscle wasting (03/24/23) Unspecified urinary incontinence (03/24/23) Nocturia (03/24/23) Visit Care Team Role Provider Type JOSE ROBERTO Echevarria Attending Provider Advanced Bariatric Physician Family Provider Primary Care Provider Referring Provider Specialty: Family Practice Address: [address] [place] [address], [facility] [place], [address] Email: [email or web address] Plan Of Care PT-OP-T Assessment and Plan Start: 01/26/23 07:57 Freq: Status: Active Protocol: Document 03/24/23 09:34 [facility] (Rec: 03/24/23 10:15 [facility] [id number]) Physical Therapy Assessment Goals 3 Impairment urinary urge symptoms with urinary leaking Short Term Goal (STG) Farhana is educated on the urge deference technique and bladder retraining GOAL MET STG Duration 3 weeks Demographer Goal (LTG) Farhana is no longer experincing leakage and urgency is much decreased Excellent progress LTG Duration 12 2 Impairment nocturia with Farhana waking 3 times per night to void Demographer Goal (LTG) Farhaan has reduced her nocturia down to 1 time or less per night to void as of 03/24/23 she is doing better with this and Farhana reports it now 0-1 time per night LTG Duration 12 weeks 1 Impairment Farhana presents with decreased endurance of the pelvic floor with ability to sustain a pelvic floor contraction for 4 seconds only in supine Short Term Goal (STG) Farhana presents with improved endurance of the pelvic floor and is able to sustain a pelvic floor contraction x 10 seconds in supine excellent progress STG Duration 5 weeks Retirement Goal (LTG) Farhana is able to progress to standing pelvic floor contractions and is able to sustain a contraction x 5 -10 seconds in standing Farhana is now staring to work on standing pelvic floor contractions LTG Duration 12 weeks Assessment Summary Assessment This is Farhana's 4th visit in PT. Farhana returns from her trip to [place] and notes she wasn't able to do her exercises as much when she was with her grand kids. She still shows increase in strength and endurance of pelvic floor is improving. Her nocturia is significantly reduced to 0-1 time per night and urgency is improving. Farhana would benefit from continued PT Physical Therapy Plan Frequency and Duration Frequency of Treatment 1x/Week Duration of treatment (weeks) 8 Plan of Care Start Date 03/24/23 Plan of Care End Date 05/19/23 Therapeutic Interventions Therapeutic Interventions Home Exercise Program, Neuromuscular Re-education, Patient/Caregiver Education, Self-Care/Home Management, Therapeutic Exercises Modalities Biofeedback Next Visit Focus/Plan Next Note Type Treatment Note Next Visit Plan Continue with EMG biofeedback progressing pelvic floor endurance and eccentric control, start to work on standing pelvic floor Plan of Care Dates Plan of Care Start Date 03/24/23 Plan of Care End Date 05/19/23 Electronically Signed by: Katie Marvin, PT 03/24/23 1016 If you are in agreement with this Plan of Care, please return a signed and dated copy. I have reviewed this Plan of Care and certify that the skilled therapy services above are required to meet the patient?s needs. Physician Signature Date Printed Name and Credentials Clinical Instructor Signature Printed Name and Credentials
--- NOTE | 2023-04-07 14:56 | PT.OTN ---
Current Diagnoses Urge incontinence (04/07/23) Pelvic muscle wasting (04/07/23) Unspecified urinary incontinence (04/07/23) Nocturia (04/07/23) Physical Therapy Treatment Note PT-OP-A Visit Information Start: 01/26/23 07:57 Freq: Status: Active Protocol: Document 04/07/23 14:06 [facility] (Rec: 04/07/23 14:56 [facility] [id number]) Out-Patient Physical Therapy Visit Information Visit Information Visit Type Treatment Note Visit Start Time 14:00 Visit Stop Time 14:45 Total Visit Minutes 45 PT-OP-B Current Condition Start: 01/26/23 07:57 Freq: Status: Active Protocol: Document 01/26/23 10:30 [facility] (Rec: 01/26/23 11:15 [facility] [id number]) Current Condition History of Current Condition Onset Date chronic Current Complaints intermittent incontinence History of Current Condition symptoms started after childbirth 30 years ago, she will have a sudden loss of urine when either super stressed or very tired. The most recent episode was in the last 6 months. She needed to go to the bathroom and then didn't make it. She will experience little dribbles in the am when she gets up and then periodically throughout the day she will experience little dribbles. She sleeps approx 3 hours and then wakes up to void. She would like to be able to sleep through the night. Treatment Goals Patient/Caregiver Goals pts goals include decreasing urinary incontinence and avoiding episode of sudden loss of urine PT-OP-C Subjective Start: 01/26/23 07:57 Freq: Status: Active Protocol: Document 04/07/23 14:06 [facility] (Rec: 04/07/23 14:56 [facility] [id number]) OP-PT Subjective Patient Comments Patient Comments Farhana notes she is doing better and has been doing her exercises PT-OP-I Pelvic Floor Start: 01/26/23 07:57 Freq: Status: Active Protocol: Document 01/26/23 10:30 [facility] (Rec: 01/27/23 14:42 [facility] [id number]) Pelvic Floor Assessment Urine Pelvic Floor Surgery No Urinary Symptoms Urge Sensation Leakage Size Small Other Leakage Causes pt has had two episodes of full loss of urine but usually has just a few drops throughout the day Leaks Per Day 2 Nocturia 2 Pelvic Clock Pelvic Clock 6-9 Guarding,Tightness Contraction Ability Voluntary Contraction Weak Voluntary Relaxation Weak Manual Muscle Testing Left 3 Manual Muscle Testing Right 3 Manual Muscle Testing Anterior 3 Manual Muscle Testing Posterior 3 Muscle Endurance (Seconds) 4 Comments Pelvic Floor Comments pt has difficulty relaxing the right lateral wall of the levator ani and is guarded, she lacks endurance to sustain a contraction more than 4 seconds PT-OP-M Strength Start: 01/26/23 07:57 Freq: Status: Active Protocol: Document 01/26/23 10:30 [facility] (Rec: 01/27/23 14:42 [facility] [id number]) Trunk Strength Trunk Manual Muscle Testing Testing Position Supine Flexion 3 Fair Core Stabilization decreased transverse abdominal core stabilization PT-OP-Q Treatments Start: 01/26/23 07:57 Freq: Status: Active Protocol: Document 04/07/23 14:06 [facility] (Rec: 04/07/23 14:56 [facility] [id number]) Therapeutic Exercises Supine Exercises bridges with ball squeeze and pelvic floor activation Reps/Minutes x 10 reps templates for eccentric control Reps/Minutes x 8 min quick pelvic floor contractions Reps/Minutes x 10 reps holding 2 sec and resting 2 sec Comments 53.0 max pt to work on standing pelvic floor contractions for home ball squeeze Reps/Minutes with pelvic floor activation Comments x 10 reps piriformis stretch Reps/Minutes hold 1-2 min pelvic floor long holds Reps/Minutes 10 reps holding 10 seconds and resting 10 seconds Comments 13.7 and max of 39.0 Sidelying Exercises clam shells with TB Sidelying Exercise Name HEP PT-OP-T Assessment and Plan Start: 01/26/23 07:57 Freq: Status: Active Protocol: Document 04/07/23 14:06 [facility] (Rec: 04/07/23 14:56 [facility] [id number]) Physical Therapy Assessment Goals 3 Impairment urinary urge symptoms with urinary leaking Short Term Goal (STG) Farhana is educated on the urge deference technique and bladder retraining GOAL MET STG Duration 3 weeks Prison Goal (LTG) Farhana is no longer experincing leakage and urgency is much decreased Excellent progress LTG Duration 12 2 Impairment nocturia with Farhana waking 3 times per night to void Motor Operator Goal (LTG) Farhana has reduced her nocturia down to 1 time or less per night to void as of 03/24/23 she is doing better with this and Farhana reports it now 0-1 time per night LTG Duration 12 weeks 1 Impairment Farhana presents with decreased endurance of the pelvic floor with ability to sustain a pelvic floor contraction for 4 seconds only in supine Short Term Goal (STG) Farhana presents with improved endurance of the pelvic floor and is able to sustain a pelvic floor contraction x 10 seconds in supine excellent progress STG Duration 5 weeks Prison Goal (LTG) Farhana is able to progress to standing pelvic floor contractions and is able to sustain a contraction x 5 -10 seconds in standing Farhana is now staring to work on standing pelvic floor contractions LTG Duration 12 weeks Assessment Summary Assessment farhana is making steady progress and her ability to sustain a pelvic floor contraction is improving. Physical Therapy Plan Frequency and Duration Frequency of Treatment 1x/Week Duration of treatment (weeks) 8 Plan of Care Start Date 03/24/23 Plan of Care End Date 05/19/23 Next Visit Focus/Plan Next Note Type Treatment Note Next Visit Plan Continue with EMG biofeedback progressing pelvic floor endurance and eccentric control, start to work on standing pelvic floor
--- NOTE | 2023-04-14 13:09 | PT.OTN ---
Current Diagnoses Urge incontinence (04/14/23) Pelvic muscle wasting (04/14/23) Unspecified urinary incontinence (04/14/23) Nocturia (04/14/23) Physical Therapy Treatment Note PT-OP-A Visit Information Start: 01/26/23 07:57 Freq: Status: Active Protocol: Document 04/14/23 12:30 [facility] (Rec: 04/14/23 13:09 [facility] [id number]) Out-Patient Physical Therapy Visit Information Visit Information Visit Type Treatment Note Visit Start Time 12:30 Visit Stop Time 15:15 Total Visit Minutes 45 Visit Number 6 PT-OP-B Current Condition Start: 01/26/23 07:57 Freq: Status: Active Protocol: Document 01/26/23 10:30 [facility] (Rec: 01/26/23 11:15 [facility] [id number]) Current Condition History of Current Condition Onset Date chronic Current Complaints intermittent incontinence History of Current Condition symptoms started after childbirth 30 years ago, she will have a sudden loss of urine when either super stressed or very tired. The most recent episode was in the last 6 months. She needed to go to the bathroom and then didn't make it. She will experience little dribbles in the am when she gets up and then periodically throughout the day she will experience little dribbles. She sleeps approx 3 hours and then wakes up to void. She would like to be able to sleep through the night. Treatment Goals Patient/Caregiver Goals pts goals include decreasing urinary incontinence and avoiding episode of sudden loss of urine PT-OP-C Subjective Start: 01/26/23 07:57 Freq: Status: Active Protocol: Document 04/14/23 12:30 [facility] (Rec: 04/14/23 13:09 [facility] [id number]) OP-PT Subjective Patient Comments Patient Comments things are going well but running water is a trigger, getting home now is a little easier. PT-OP-I Pelvic Floor Start: 01/26/23 07:57 Freq: Status: Active Protocol: Document 01/26/23 10:30 [facility] (Rec: 01/27/23 14:42 [facility] [id number]) Pelvic Floor Assessment Urine Pelvic Floor Surgery No Urinary Symptoms Urge Sensation Leakage Size Small Other Leakage Causes pt has had two episodes of full loss of urine but usually has just a few drops throughout the day Leaks Per Day 2 Nocturia 2 Pelvic Clock Pelvic Clock 6-9 Guarding,Tightness Contraction Ability Voluntary Contraction Weak Voluntary Relaxation Weak Manual Muscle Testing Left 3 Manual Muscle Testing Right 3 Manual Muscle Testing Anterior 3 Manual Muscle Testing Posterior 3 Muscle Endurance (Seconds) 4 Comments Pelvic Floor Comments pt has difficulty relaxing the right lateral wall of the levator ani and is guarded, she lacks endurance to sustain a contraction more than 4 seconds PT-OP-M Strength Start: 01/26/23 07:57 Freq: Status: Active Protocol: Document 01/26/23 10:30 [facility] (Rec: 01/27/23 14:42 [facility] [id number]) Trunk Strength Trunk Manual Muscle Testing Testing Position Supine Flexion 3 Fair Core Stabilization decreased transverse abdominal core stabilization PT-OP-Q Treatments Start: 01/26/23 07:57 Freq: Status: Active Protocol: Document 04/14/23 12:30 [facility] (Rec: 04/14/23 13:09 [facility] [id number]) Therapeutic Exercises Supine Exercises bridges with ball squeeze and pelvic floor activation Reps/Minutes x 10 reps templates for eccentric control Reps/Minutes x 8 min quick pelvic floor contractions Reps/Minutes x 10 reps holding 2 sec and resting 2 sec Comments 21.7 pelvic floor long holds Reps/Minutes 10 reps holding 10 seconds and resting 10 seconds Comments 16.2 and 24.7 max Standing Exercises standing pelvic floor contractions Reps/Minutes worked on leaning over the plinth Self-Care/Home Management Treatment Education Patient Education Home Exercise Program Other Education review of HEP and adding in standing pelvic floor contractions PT-OP-T Assessment and Plan Start: 01/26/23 07:57 Freq: Status: Active Protocol: Document 04/14/23 12:30 [facility] (Rec: 04/14/23 13:09 [facility] [id number]) Physical Therapy Assessment Goals 3 Impairment urinary urge symptoms with urinary leaking Short Term Goal (STG) Farhana is educated on the urge deference technique and bladder retraining GOAL MET STG Duration 3 weeks Retirement Goal (LTG) Farhana is no longer experincing leakage and urgency is much decreased Excellent progress LTG Duration 12 2 Impairment nocturia with Farhana waking 3 times per night to void Reel Operator Goal (LTG) Farhana has reduced her nocturia down to 1 time or less per night to void as of 03/24/23 she is doing better with this and Farhana reports it now 0-1 time per night LTG Duration 12 weeks 1 Impairment Farhana presents with decreased endurance of the pelvic floor with ability to sustain a pelvic floor contraction for 4 seconds only in supine Short Term Goal (STG) Farhana presents with improved endurance of the pelvic floor and is able to sustain a pelvic floor contraction x 10 seconds in supine GOAL MET STG Duration 5 weeks Retirement Goal (LTG) Farhana is able to progress to standing pelvic floor contractions and is able to sustain a contraction x 5 -10 seconds in standing Farhana is now staring to work on standing pelvic floor contractions LTG Duration 12 weeks Physical Therapy Plan Discharge Physical Therapy Discharge Reasons Goals Met Discharge Comments DC to a I HEP at this time
== END 2023-06-17 08:23 | disposition home or self-care (01) ==
LOC: PHYS 12:30
PROVIDERS: Family Provider Internal Medicine; PCP Internal Medicine; Referring Provider Internal Medicine; Visit Provider Internal Medicine
DX: N81.84 Pelvic muscle wasting (principal); R35.1 Nocturia; N39.41 Urge incontinence
CPT/HCPCS: 97110; 97161; 97535

== ENCOUNTER → 2023-05-12 07:51 | Outpatient (CLI) | payer MEDICARE, OTHER, SELFPAY ==
--- NOTE | 2023-05-12 | DI.RAD.S_ITS ---
PROCEDURE: XR KNEE RT 3V INDICATIONS: chronic pain of right knee TECHNIQUE: 3 views of the knee were acquired. COMPARISON: None. FINDINGS: Bones: No fractures or dislocations. No suspicious bony lesions. Mild tricompartmental joint space narrowing and osteophytosis. Soft tissues: Small joint effusion. No suspicious soft tissue calcifications. IMPRESSION: No acute osseous abnormality. Small joint effusion and mild tricompartmental osteoarthrosis. Approved by: Mary Carmen Rodriguez M.D. on 05/12/2023 at 10:13
== END ==
PROVIDERS: Family Provider Internal Medicine; PCP Internal Medicine; Referring Provider Internal Medicine; Visit Provider Internal Medicine
DX: M17.11 Unilateral primary osteoarthritis, right knee (principal); M25.461 Effusion, right knee; M25.561 Pain in right knee; G89.29 Other chronic pain
CPT/HCPCS: 73562

== ENCOUNTER → 2023-08-18 12:12 | Outpatient (CLI) | payer MEDICARE, OTHER, SELFPAY ==
--- NOTE | 2023-08-18 12:13 | DI.ECHO.S_ITS ---
[place] +---------+ Hospital +---------+ : : [address] [place] [address] : : : : [id number] : : : : Phone: [phone] Echocardiogram Report + + :Name: ROBIN LOPEZ Study Date: 08/18/2023 Height: 67 in : :[facility] ReadingLocation: Weight: 132 lb : : Gender: Female BSA: 1.7 m2 : :: 1955 Age: 67 yrs BP: 170/103 mmHg: :Reason For Study: CONGENTIAL INSUFFICIENCY OF AORTIC VALVE : :Ordering Physician: SABINA, : :LINDA Performed By: Sarah Christie : :Referring: LINDA MUHAMMAD : + + Interpretation Summary The ejection fraction is estimated to be 45-50%. Grade I diastolic dysfunction. The left atrium is severely dilated. The right ventricle is mildly dilated. The right ventricular systolic function is normal. There is mild mitral regurgitation. Pulmonary artery pressures cannot be estimated because of the lack of a measurable TR jet velocity but the IVC suggests a CVP of around 3 mmHg. The ascending aorta is mildly enlarged, 4.0 cm. Compared to the prior study dated 10/17/2020, the ejection fraction has decreased and the left atrial size is increased. Procedure: A two-dimensional transthoracic echocardiogram with color flow and Doppler was performed. The study quality was technically adequate. Comparison is made with the echocardiogram of 10/17/2020. The patient was in sinus rhythm with heart rates between 56-75 bpm during the exam. Left Ventricle: Proximal septal thickening is noted. The left ventricle is normal in size. The ejection fraction is estimated to be 45-50%. Diastolic parameters suggest a relaxation abnormality of the left ventricle, consistent with probable normal filling pressures. Right Ventricle: The right ventricle is mildly dilated. The right ventricular systolic function is normal. Atria: The left atrium is severely dilated. Right atrial size is normal. Chiari network (normal variant) is noted. The interatrial septum bows toward right atrium consistent with elevated left atrial pressure. Mitral Valve: There is a flat closure plane of the the mitral valve leaflets. There is mild mitral regurgitation. Aortic Valve: The aortic valve is trileaflet. The aortic valve is mildly calcified. There is no aortic valve stenosis. No aortic regurgitation is present. Tricuspid Valve: The tricuspid valve is normal in structure and function. There is trace tricuspid regurgitation. Pulmonary artery pressures cannot be estimated because of the lack of a measurable TR jet velocity but the IVC suggests a CVP of around 3 mmHg. Pulmonic Valve: The pulmonic valve is not well seen, but is grossly normal. There is no pulmonic valvular regurgitation. Great Vessels: The aortic root is normal size. The ascending aorta is mildly enlarged. The IVC is of normal diameter and collapses greater than 50% with a sniff. This suggests a low right atrial pressure of 3 mm Hg. Pericardium/ Pleura There is no pericardial effusion. There is no pleural effusion. MMode/2D Measurements & Calculations LVIDd: 4.9 cm LVOT diam: 2.0 cm LVIDs: 3.0 cm Ao root diam: 3.2 cm FS: 38.4 % asc Aorta Diam: 4.0 cm EPSS: 0.80 cm Ao Arch Diam (Prox Trans): 3.1 cm IVSd: 0.79 cm LVPWd: 0.75 cm LV crowe. diameter/BSA (cm/m^2): 2.9 LV sys. diameter/BSA (cm/m^2): 1.8 LA A2 area: 25.4 cm2 RA long axis: 4.5 cm LA A4 area: 22.1 cm2 RA area: 13.8 cm2 LA length (vol): 4.9 cm RA vol: 35.7 ml LA vol: 97.4 ml RA : 21.1 ml/m2 LA vol index: 57.5 ml/m2 IVC diam: 1.3 cm RVD1 (basal): 4.1 cm RVD2 (mid): 2.7 cm TAPSE: 2.8 cm Doppler Measurements & Calculations Ao V2 max: 146.7 cm/sec LVOT Max Fitz: 88.8 cm/sec Ao V2 mean: 107.8 cm/sec LV V1 max P.2 mmHg Ao max P.6 mmHg LV V1 VTI: 19.8 cm Ao mean P.1 mmHg PETR(I,D): 2.0 cm2 Ao V2 VTI: 30.4 cm PETR(V,D): 1.9 cm2 sev ratio: 0.65 PETR indexed to BSA (cm^2/m^2): 1.2 MV E max fitz: 47.6 cm/sec PA V2 max: 89.8 cm/sec MV A max fitz: 74.7 cm/sec PA V2 mean: 68.7 cm/sec MV E/A: 0.64 PA mean P.0 mmHg Med Peak E' Ftiz: 3.0 cm/sec PA pr(Accel): 31.0 mmHg E/E' med: 15.9 Lat Peak E' Fitz: 5.1 cm/sec E/E' lat: 9.4 E/e' average: 12.6 MV dec time: 0.24 sec SV(LVOT): 61.1 ml Reading Physician:09:50 PM
== END ==
LOC: ECHO 12:13
PROVIDERS: Family Provider Internal Medicine; PCP Internal Medicine; Referring Provider Internal Medicine Cardiovascular Disease; Visit Provider Internal Medicine Cardiovascular Disease
DX: Q23.1 Congenital insufficiency of aortic valve (principal); I34.0 Nonrheumatic mitral (valve) insufficiency; I77.89 Other specified disorders of arteries and arterioles
CPT/HCPCS: 93306

== ENCOUNTER → 2024-05-21 07:42 | Outpatient (CLI) | payer MEDICARE, OTHER, SELFPAY ==
--- NOTE | 2024-05-21 | DI.MG.S_ITS ---
BILATERAL DIGITAL SCREENING MAMMOGRAM 3D/2D WITH CAD: 05/21/2024 CLINICAL: Routine screening. Comparison is made to exams dated: 05/18/2022 mammogram, 07/01/2020 mammogram - [facility], and 09/26/2017 mammogram - [facility]. The breasts are heterogeneously dense, which may obscure small masses (category c / 51-75% glandular tissue). Current study was also evaluated with a Computer Aided Detection (CAD) system. There are benign calcifications in both breasts. No significant masses, calcifications, or other findings are seen in either breast. There has been no significant interval change. IMPRESSION: BENIGN There is no mammographic evidence of malignancy. A 1 year screening mammogram is recommended. Based on the Tyrer Cuzick model (a risk assessment model) the patient's lifetime risk is 6.5% and her 10 year risk is 3.8%. According to the ACR, ACS, and NCCN guidelines, an annual breast MRI exam along with mammogram is recommended if the patient's lifetime risk is 20% or greater. This exam was interpreted at Station ID: [id number]. NOTE: For mammograms, a report in lay terms will be sent to the patient. Approximately 15% of breast malignancies will not be visualized mammographically. In the management of a palpable breast mass, a negative mammogram must not discourage biopsy of a clinically suspicious lesion. Electronically Signed By: Andrew ruffin/lili:05/21/2024 17:16:17 letter sent: Normal Exam ACR BI-RADS Category 2: Benign
== END ==
LOC: MAMMO 07:43
PROVIDERS: Family Provider Internal Medicine; PCP Internal Medicine; Referring Provider Internal Medicine; Visit Provider Internal Medicine
DX: Z12.31 Encounter for screening mammogram for malignant neoplasm of breast (principal); R92.333 Mammographic heterogeneous density, bilateral breasts
CPT/HCPCS: 77063; 77067

== ENCOUNTER 2024-07-12 08:02 | Day surgery (SDC) | payer MEDICARE, OTHER, SELFPAY ==
[2024-07-12 08:53] VITALS: BP 139/78; PULSE 57; RESP 16; TEMP 36.4; O2SAT 98
[2024-07-12] MEDS: SODIUM CHLORIDE 0.9% 1,000 ML 150 ML IV (09:04)
--- NOTE | 2024-07-12 09:23 | PM.HP.IH.1 ---
History of Present Illness History of Present Illness Date Patient Seen: 07/12/24 Chief complaint: Colonoscopy Narrative: Farhana is a 68-year-old woman here for colonoscopy. Her last colonoscopy was in 2019 and she had some polyps removed. [facility] Medical History Patient denies medical problems Social History household members: spouse Smoking Status: Never smoker alcohol intake: never Meds Home Medications and Allergies Home Medications Medication Instructions Recorded Confirmed Type COENZYME Q10/VITAMIN E (CO-Q-10 100 mg PO QDAY ##0 09/20/12 07/12/24 History 100mg) B12 500 mcg PO DAILY 12/26/18 07/12/24 History cholecalciferol (vitamin D3) 50 2,000 unit PO DAILY 12/26/18 07/12/24 History mcg (2,000 unit) tablet (Vitamin D3) sodium,potassium,mag sulfates 17.5 See Rx Instructions PO .COMPLEX 05/31/24 Rx gram-3.13 gram-1.6 gram oral soln #354 mL (Suprep Bowel Prep Kit) carvedilol 3.125 mg tablet 3.125 mg PO BID 07/12/24 07/12/24 History Allergies Allergy/AdvReac Type Severity Reaction Status Date / Time amoxicillin Allergy Severe Hives Verified 07/12/24 08:47 Exam Vital Signs (past 8 hours): - 07/12/24 08:53 Temperature 97.6 F Pulse Rate 57 L Respiratory Rate 16 Blood Pressure 139/78 Pulse Oximetry 98 Oxygen Delivery Method Room Air Oxygen Delivery Method Room Air Const General: healthy appearing Assessment & Plan Assessment and plan (1) History of colon polyps: Status: Acute Plan Colonoscopy Time-Based Coding :: [TOTAL MINUTES] spent with patient and on the chart (including review of chart, obtaining history, exam, reviewing outside data, placing orders, documenting exam and treatment plan, and counseling patient) on [DATE]. PROFEE Ultrasound Technol Document charge(s): No
--- NOTE | 2024-07-12 10:10 | PM.OP.COLON ---
Operative Date/Time/Diagnoses Date of procedure: 07/12/24 Time of procedure: 10:10 Pre-op diagnosis: Colon cancer screening Post-op diagnosis: same Procedure & Clinicians Study performed: Colonoscopy Same procedure as scheduled: Yes Surgeon: Aniket Hagen Procedure Notes Procedure in detail: Surgeon: Aniket Hagen MD Anesthesia: Kaelyn Small CRNA Procedure: The patient was brought to the endoscopy suite, placed in left lateral decubitus position. The patient was connected to monitoring devices. A time-out was performed. Sedation was administered. Once the patient was adequately sedated, a digital rectal exam was performed and was normal. The scope was then inserted and advanced to the cecum where the appendiceal orifice was identified and photographed. The scope was then slowly withdrawn over greater than 6 minutes. The mucosa was thoroughly inspected. No abnormalities were found. The scope was retroflexed in the rectum. The scope was straightened and removed. The patient was awakened and brought to recovery. Scope withdrawal time: 7 minutes Sedation time: 12 minutes EBL: 0 Findings: Normal colon Post-procedure Recommendations: Colonoscopy in 10 years Disposition: PACU
[2024-07-12 10:12] VITALS: BP 105/44; PULSE 78; RESP 16; TEMP 36.3; O2SAT 98
[2024-07-12 10:16] VITALS: BP 110/69; PULSE 82; RESP 16; O2SAT 100
[2024-07-12 10:22] VITALS: BP 119/74; PULSE 82; RESP 16; TEMP 36.2; O2SAT 96
[2024-07-12 10:25] VITALS: BP 120/78; PULSE 70; RESP 16; O2SAT 97
== END 2024-07-12 10:38 | disposition home or self-care (01) ==
PROVIDERS: Family Provider Internal Medicine; PCP Internal Medicine; Referring Provider Surgery; Visit Provider Surgery
PROC: 0DJD8ZZ Inspection of Lower Intestinal Tract, Via Natural or Artificial Opening Endoscopic (ICD-10-PCS; CPT 45378; principal; 2024-07-12 09:15)
DX: Z12.11 Encounter for screening for malignant neoplasm of colon (principal); Z86.0100 Personal history of colon polyps, unspecified
CPT/HCPCS: G0105; J2405; J2704

== ENCOUNTER → 2024-07-19 13:38 | Outpatient (CLI) | payer MEDICARE, OTHER, SELFPAY ==
--- NOTE | 2024-07-19 13:39 | DI.RAD.S_ITS ---
PROCEDURE: XR DEXA AXIAL SKELETON INDICATIONS: SCREENING FOR OSTEOPOROSIS COMPARISON: [facility], CR, XR DEXA AXIAL SKELETON, 10/06/2022, 11:00. FINDINGS: Lumbar Spine: Bone mineral density 0.633 g/cm2, T score -3.8, compared to -3.6. Left Femoral Neck: Bone mineral density 0.519 g/cm2, T score -3.0, compared to -2.7. Left Hip: Bone mineral density 0.650 g/cm2, T score -2.4, compared to -2.1. Fracture Risk Calculation (when applicable): 10-year fracture risk of a major osteoporotic fracture 14 percent and of a hip fracture 4.6 percent. 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 Follow-up guidelines as follows: Osteoporosis: Consider a repeat DEXA and Vertebral Fracture Assessment (VFA) exam in 2 years or sooner if medically necessary, to reassess this patient's status. Osteopenia: Consider a repeat DEXA in 2-3 years to reassess this patient's status, or if there is a new clinical indication. Normal: Consider a repeat DEXA in 5 years or sooner, or if there is a new clinical indication. All treatment decisions require clinical judgment and consideration of individual patient factors, including patient preferences, comorbidities, previous drug use, risk factors not captured in the FRAX model (e.g., frailty, falls, vitamin D deficiency, increased bone turnover, interval significant decline in bone density ) and possible under- or over-estimation of fracture risk by FRAX. In addition, the NOF Guide recommends that FDA-approved medical therapies be considered in postmenopausal women and men age >= 50 years with a: * Hip or vertebral (clinical or morphometric) fracture * T-score of <=-2.5 at the spine or hip * Ten-year fracture probability by FRAX of >= 3% for hip fracture or >=20% for major osteoporotic fracture. Dictated by: Mary Manriquez M.D. on 07/19/2024 at 15:27 Approved by: Mary Manriquez M.D. on 07/19/2024 at 15:29
== END ==
LOC: RAD 13:39
PROVIDERS: Family Provider Internal Medicine; PCP Internal Medicine; Referring Provider Registered Nurse; Visit Provider Registered Nurse
DX: M81.0 Age-related osteoporosis without current pathological fracture (principal)
CPT/HCPCS: 77080

== ENCOUNTER → 2024-07-23 07:58 | Outpatient (CLI) | payer MEDICARE, OTHER, SELFPAY ==
--- NOTE | 2024-07-23 07:59 | DI.ECHO.S_ITS ---
[place] +---------+ Hospital : : [address] : : [place] : : [id number] : : Phone: [phone] Echocardiogram Report + + :Name: ROBIN LOPEZ Study Date: 07/23/2024 Height: 66.5 in: :[facility] ReadingLocation: Weight: 120 lb : : Gender: Female BSA: 1.6 m2 : :: 1955 Age: 68 yrs BP: 133/75 mmHg: :Reason For Study: NSVT, CARDIOMYOPATHY : :Ordering Physician: SABINA, : :LINDA Performed By: Sarah Christie : :Referring: TED REYESP : + + Interpretation Summary 1) Normal left ventricular thickness, size, wall motion, and systolic function (EF 55-60%). 2) Mildly enlarged right ventricle with normal function. 3) The left atrium is severely dilated. 4) There is mild mitral regurgitation. 5) Compared to the Echo done 08/18/2023, no significant change. Procedure: A two-dimensional transthoracic echocardiogram with color flow and Doppler was performed. The study quality was technically adequate. Comparison is made with the echocardiogram of 08/18/2023. The patient was in sinus bradycardia with heart rates between 43-56 bpm during the exam. Left Ventricle: The left ventricle is normal in size and wall thickness. The ejection fraction is estimated to be 55-60%. Left ventricular systolic function appears normal without focal wall motion abnormalities. Diastolic parameters suggest a relaxation abnormality of the left ventricle, consistent with probable normal filling pressures. Right Ventricle: The right ventricle is mildly dilated. The right ventricular systolic function is normal. Atria: The left atrium is severely dilated. The right atrium is mildly dilated. There is no Doppler evidence for an interatrial shunt. Mitral Valve: The mitral valve leaflets appear moderately thickened, but open well. There is a flat closure plane of the the mitral valve leaflets. There is mild mitral regurgitation. Aortic Valve: The aortic valve is mildly calcified. The aortic valve is trileaflet. The aortic valve opens well. There is no aortic valve stenosis. There is trace aortic regurgitation. Tricuspid Valve: The tricuspid valve leaflets are thin and pliable. There is mild tricuspid regurgitation. The right ventricular systolic pressure is estimated to be at least 24 mmHg based on an estimated right atrial pressure of 3 mm Hg. Pulmonic Valve: The pulmonic valve leaflets are thin and pliable; valve motion is normal. There is mild pulmonic regurgitation. Great Vessels: The aortic root is normal size. The dimensions of the ascending aorta are normal. The IVC is of normal diameter and collapses greater than 50% with a sniff. This suggests a low right atrial pressure of 3 mm Hg. Pericardium/ Pleura There is no pericardial effusion. There is no pleural effusion. MMode/2D Measurements & Calculations LVIDd: 4.3 cm LVOT diam: 2.1 cm LVIDs: 3.3 cm Ao root diam: 2.9 cm FS: 22.6 % asc Aorta Diam: 3.5 cm EPSS: 0.72 cm Ao Arch Diam (Prox Trans): 3.1 cm IVSd: 0.89 cm LVPWd: 0.86 cm LV crowe. diameter/BSA (cm/m^2): 2.6 LV sys. diameter/BSA (cm/m^2): 2.0 LA A2 area: 25.4 cm2 RA long axis: 5.3 cm LA A4 area: 20.4 cm2 RA area: 19.8 cm2 LA length (vol): 4.8 cm RA vol: 63.2 ml LA vol: 91.1 ml RA : 39.0 ml/m2 LA vol index: 56.2 ml/m2 IVC diam: 1.6 cm RVD1 (basal): 4.2 cm RVD2 (mid): 3.1 cm TAPSE: 2.3 cm Doppler Measurements & Calculations Ao V2 max: 151.3 cm/sec LVOT Max Fitz: 90.3 cm/sec Ao V2 mean: 101.4 cm/sec LV V1 max P.3 mmHg Ao max P.2 mmHg LV V1 VTI: 20.4 cm Ao mean P.7 mmHg PETR(I,D): 2.2 cm2 Ao V2 VTI: 33.0 cm PETR(V,D): 2.1 cm2 sev ratio: 0.62 PETR indexed to BSA (cm^2/m^2): 1.3 MV E max fitz: 51.6 cm/sec TR max fitz: 230.4 cm/sec MV A max fitz: 56.2 cm/sec TR max P.2 mmHg MV E/A: 0.92 PA V2 max: 102.7 cm/sec Med Peak E' Fitz: 4.6 cm/sec PA V2 mean: 71.7 cm/sec E/E' med: 11.2 PA mean P.3 mmHg Lat Peak E' Fitz: 6.1 cm/sec PA pr(Accel): 20.8 mmHg E/E' lat: 8.5 E/e' average: 9.8 MV dec time: 0.29 sec SV(LVOT): 71.9 ml Reading Physician:01:05 PM
== END ==
PROVIDERS: Family Provider Internal Medicine; PCP Internal Medicine; Referring Provider Internal Medicine Cardiovascular Disease; Visit Provider Internal Medicine Cardiovascular Disease
DX: I08.1 Rheumatic disorders of both mitral and tricuspid valves (principal); Q23.81 Bicuspid aortic valve; I47.29 Other ventricular tachycardia; I42.9 Cardiomyopathy, unspecified
CPT/HCPCS: 93306